=== PATIENT | female | born 1960 | race African-American/Black ===

== ENCOUNTER → 2016-09-19 | Outpatient (CLI) | payer BC ==
[2016-09-19 08:03] LABS: ABSOLUTE EOSINOPHILS # (AUTO) 0.2 10^3/uL (0.0-0.6); ABSOLUTE LYMPHOCYTES (AUTO) 1.2 10^3/uL (0.5-4.7); ABSOLUTE MONOCYTES (AUTO) 0.6 10^3/uL (0.1-1.4); ABSOLUTE NEUT (AUTO) 3.2 10^3/uL (1.7-8.2); BASOPHILS % (AUTO) 0.5 % (0-2); EOSINOPHILS % (AUTO) 3.2 % (0-6); HEMOGLOBIN 12.5 g/dL (12.0-15.5); HGB HCT DIFFERENCE 0.5; LYMPHOCYTES % (AUTO) 23.7 % (13-45); MEAN CORPUSCULAR HEMOGLOBIN 27.8 pg (27.0-33.4); MEAN CORPUSCULAR HGB CONC 33.7 g/dL (32.0-36.0); MEAN CORPUSCULAR VOLUME 83 fl (80-97); MONOCYTES % (AUTO) 10.7 % (3-13); RED BLOOD COUNT 4.49 10^6/uL (3.72-5.28); RED CELL DISTRIBUTION WIDTH 16.2 % (11.5-14.0); SEGMENTED NEUTROPHILS % (AUTO) 61.9 % (42-78); WHITE BLOOD COUNT 5.2 10^3/uL (4.0-10.5)
[2016-09-19 08:08] LABS: APPEARANCE,URINE CLEAR; BILIRUBIN,URINE NEGATIVE (NEGATIVE); GLUCOSE, URINE NEGATIVE (NEGATIVE); KETONES,URINE NEGATIVE (NEGATIVE); LEUKOCYTE ESTERASE,URINE NEGATIVE (NEGATIVE); NITRITE,URINE NEGATIVE (NEGATIVE); PROTEIN,URINE NEGATIVE (NEGATIVE); URINE SPECIFIC GRAVITY 1.013; UROBILINOGEN,URINE NEGATIVE mg/dL (<2.0)
[2016-09-19 08:23] LABS: ALANINE AMINOTRANSFERASE 23 U/L (9-52); ALBUMIN 4.2 g/dL (3.5-5.0); ALKALINE PHOSPHATASE 80 U/L (38-126); ANION GAP 12 (5-19); ASPARTATE AMINO TRANSFERASE 25 U/L (14-36); BILIRUBIN,TOTAL 0.7 mg/dL (0.2-1.3); BLOOD UREA NITROGEN 10 mg/dL (7-20); CALCIUM 9.4 mg/dL (8.4-10.2); CARBON DIOXIDE 24 mmol/L (22-30); CHLORIDE 107 mmol/L (98-107); CREATININE RESULT 0.77 mg/dL (0.52-1.25); GLUCOSE 89 mg/dL (75-110); POTASSIUM 3.8 mmol/L (3.6-5.0); SODIUM 143.1 mmol/L (137-145); TOTAL PROTEIN 7.4 g/dL (6.3-8.2)
== END ==
LOC: OD 07:04
PROVIDERS: ATTEND Internal Medicine Cardiovascular Disease
DX: I48.0 Paroxysmal atrial fibrillation (principal); Z79.01 Long term (current) use of anticoagulants; Z79.899 Other long term (current) drug therapy
CPT/HCPCS: 36415; 80048; 80076; 81001; 82272; 83735; 85025; 85730

== ENCOUNTER → 2016-12-26 | Outpatient (CLI) | payer BC ==
[2016-12-26 08:46] LABS: APPEARANCE,URINE SLIGHTLY-CLOUDY; BILIRUBIN,URINE NEGATIVE (NEGATIVE); GLUCOSE, URINE NEGATIVE (NEGATIVE); KETONES,URINE NEGATIVE (NEGATIVE); LEUKOCYTE ESTERASE,URINE NEGATIVE (NEGATIVE); NITRITE,URINE NEGATIVE (NEGATIVE); PROTEIN,URINE NEGATIVE (NEGATIVE); URINE SPECIFIC GRAVITY 1.013; UROBILINOGEN,URINE NEGATIVE mg/dL (<2.0)
[2016-12-26 08:53] LABS: ABSOLUTE EOSINOPHILS # (AUTO) 0.2 10^3/uL (0.0-0.6); ABSOLUTE LYMPHOCYTES (AUTO) 1.1 10^3/uL (0.5-4.7); ABSOLUTE MONOCYTES (AUTO) 0.5 10^3/uL (0.1-1.4); ABSOLUTE NEUT (AUTO) 2.7 10^3/uL (1.7-8.2); BASOPHILS % (AUTO) 1.1 % (0-2); EOSINOPHILS % (AUTO) 3.3 % (0-6); HEMATOCRIT 38.9 % (36.0-47.0); HEMOGLOBIN 12.8 g/dL (12.0-15.5); HGB HCT DIFFERENCE -0.5; LYMPHOCYTES % (AUTO) 24.8 % (13-45); MEAN CORPUSCULAR HEMOGLOBIN 27.5 pg (27.0-33.4); MEAN CORPUSCULAR HGB CONC 32.9 g/dL (32.0-36.0); MEAN CORPUSCULAR VOLUME 84 fl (80-97); MONOCYTES % (AUTO) 11.8 % (3-13); RED BLOOD COUNT 4.66 10^6/uL (3.72-5.28); RED CELL DISTRIBUTION WIDTH 15.5 % (11.5-14.0); WHITE BLOOD COUNT 4.6 10^3/uL (4.0-10.5)
[2016-12-26 09:06] LABS: ALANINE AMINOTRANSFERASE 34 U/L (9-52); ALBUMIN 4.2 g/dL (3.5-5.0); ALKALINE PHOSPHATASE 75 U/L (38-126); ANION GAP 12 (5-19); ASPARTATE AMINO TRANSFERASE 25 U/L (14-36); BILIRUBIN,DIRECT 0.3 mg/dL (0.0-0.4); BILIRUBIN,TOTAL 0.7 mg/dL (0.2-1.3); BLOOD UREA NITROGEN 12 mg/dL (7-20); CALCIUM 9.7 mg/dL (8.4-10.2); CARBON DIOXIDE 26 mmol/L (22-30); CHLORIDE 105 mmol/L (98-107); CREATININE RESULT 0.81 mg/dL (0.52-1.25); GLUCOSE 90 mg/dL (75-110); MAGNESIUM 2.2 mg/dL (1.6-2.3); POTASSIUM 3.7 mmol/L (3.6-5.0); SODIUM 142.6 mmol/L (137-145); TOTAL PROTEIN 7.4 g/dL (6.3-8.2)
== END ==
LOC: OD 07:34
PROVIDERS: ATTEND Internal Medicine Cardiovascular Disease
DX: Z79.01 Long term (current) use of anticoagulants (principal); Z79.899 Other long term (current) drug therapy
CPT/HCPCS: 36415; 80048; 80076; 81001; 82272; 83735; 85025; 85730

== ENCOUNTER → 2017-02-17 | Outpatient (CLI) | payer BC ==
[2017-02-17 08:47] LABS: CHOLESTEROL 153.69 mg/dL (0-200); Direct HDL 56 mg/dL (>40); TRIGLYCERIDES 64 mg/dL (<150)
[2017-02-17 08:58] LABS: DIRECT LDL 69 mg/dL (<100)
== END ==
LOC: OD 07:10
PROVIDERS: ATTEND Internal Medicine Cardiovascular Disease
DX: E78.00 Pure hypercholesterolemia, unspecified (principal)
CPT/HCPCS: 36415; 80061

== ENCOUNTER → 2017-03-25 | Outpatient (CLI) | payer BC ==
[2017-03-25 12:05] LABS: APPEARANCE,URINE CLEAR; BILIRUBIN,URINE NEGATIVE (NEGATIVE); GLUCOSE, URINE NEGATIVE (NEGATIVE); KETONES,URINE NEGATIVE (NEGATIVE); LEUKOCYTE ESTERASE,URINE NEGATIVE (NEGATIVE); NITRITE,URINE NEGATIVE (NEGATIVE); PROTEIN,URINE NEGATIVE (NEGATIVE); URINE SPECIFIC GRAVITY 1.015; UROBILINOGEN,URINE NEGATIVE mg/dL (<2.0)
[2017-03-25 12:13] LABS: ABSOLUTE EOSINOPHILS # (AUTO) 0.1 10^3/uL (0.0-0.6); ABSOLUTE LYMPHOCYTES (AUTO) 1.3 10^3/uL (0.5-4.7); ABSOLUTE MONOCYTES (AUTO) 0.5 10^3/uL (0.1-1.4); ABSOLUTE NEUT (AUTO) 2.8 10^3/uL (1.7-8.2); BASOPHILS % (AUTO) 0.7 % (0-2); EOSINOPHILS % (AUTO) 2.7 % (0-6); HEMATOCRIT 36.3 % (36.0-47.0); HEMOGLOBIN 12.2 g/dL (12.0-15.5); HGB HCT DIFFERENCE 0.3; LYMPHOCYTES % (AUTO) 28.1 % (13-45); MEAN CORPUSCULAR HEMOGLOBIN 28.2 pg (27.0-33.4); MEAN CORPUSCULAR HGB CONC 33.7 g/dL (32.0-36.0); MEAN CORPUSCULAR VOLUME 84 fl (80-97); MONOCYTES % (AUTO) 10.2 % (3-13); RED BLOOD COUNT 4.33 10^6/uL (3.72-5.28); RED CELL DISTRIBUTION WIDTH 15.7 % (11.5-14.0); SEGMENTED NEUTROPHILS % (AUTO) 58.3 % (42-78); WHITE BLOOD COUNT 4.7 10^3/uL (4.0-10.5)
[2017-03-25 12:29] LABS: ALANINE AMINOTRANSFERASE 31 U/L (9-52); ALBUMIN 4.1 g/dL (3.5-5.0); ALKALINE PHOSPHATASE 77 U/L (38-126); ANION GAP 9 (5-19); ASPARTATE AMINO TRANSFERASE 25 U/L (14-36); BILIRUBIN,DIRECT 0.4 mg/dL (0.0-0.4); BILIRUBIN,TOTAL 0.7 mg/dL (0.2-1.3); BLOOD UREA NITROGEN 9 mg/dL (7-20); CALCIUM 9.7 mg/dL (8.4-10.2); CARBON DIOXIDE 28 mmol/L (22-30); CHLORIDE 105 mmol/L (98-107); CREATININE RESULT 0.83 mg/dL (0.52-1.25); GLUCOSE 97 mg/dL (75-110); MAGNESIUM 2.2 mg/dL (1.6-2.3); POTASSIUM 3.6 mmol/L (3.6-5.0); SODIUM 141.8 mmol/L (137-145); TOTAL PROTEIN 7.4 g/dL (6.3-8.2)
== END ==
LOC: OD 10:34
PROVIDERS: ATTEND Internal Medicine Cardiovascular Disease
DX: E78.00 Pure hypercholesterolemia, unspecified (principal); Z79.01 Long term (current) use of anticoagulants; Z79.899 Other long term (current) drug therapy
CPT/HCPCS: 80048; 80076; 81001; 82272; 83735; 85025; 85730

== ENCOUNTER → 2017-09-08 | Outpatient (CLI) | payer BC ==
[2017-09-08 08:33] LABS: ABSOLUTE EOSINOPHILS # (AUTO) 0.2 10^3/uL (0.0-0.6); ABSOLUTE MONOCYTES (AUTO) 0.5 10^3/uL (0.1-1.4); ABSOLUTE NEUT (AUTO) 3.3 10^3/uL (1.7-8.2); EOSINOPHILS % (AUTO) 3.1 % (0-6); HEMATOCRIT 38.7 % (36.0-47.0); HEMOGLOBIN 12.7 g/dL (12.0-15.5); LYMPHOCYTES % (AUTO) 20.3 % (13-45); MEAN CORPUSCULAR HEMOGLOBIN 27.6 pg (27.0-33.4); MEAN CORPUSCULAR HGB CONC 32.7 g/dL (32.0-36.0); MEAN CORPUSCULAR VOLUME 84 fl (80-97); PLATELET COUNT 299 10^3/uL (150-450); RED BLOOD COUNT 4.59 10^6/uL (3.72-5.28); RED CELL DISTRIBUTION WIDTH 15.6 % (11.5-14.0); SEGMENTED NEUTROPHILS % (AUTO) 65.6 % (42-78); TOTAL CELLS COUNTED % (AUTO) 100 %; WHITE BLOOD COUNT 5.1 10^3/uL (4.0-10.5)
[2017-09-08 08:50] LABS: ALANINE AMINOTRANSFERASE 26 U/L (9-52); ALBUMIN 4.2 g/dL (3.5-5.0); ALKALINE PHOSPHATASE 71 U/L (38-126); ANION GAP 10 (5-19); ASPARTATE AMINO TRANSFERASE 23 U/L (14-36); BILIRUBIN,DIRECT 0.3 mg/dL (0.0-0.4); BILIRUBIN,TOTAL 0.6 mg/dL (0.2-1.3); BLOOD UREA NITROGEN 12 mg/dL (7-20); CALCIUM 10.2 mg/dL (8.4-10.2); CARBON DIOXIDE 27 mmol/L (22-30); CHLORIDE 105 mmol/L (98-107); GLUCOSE 90 mg/dL (75-110); MAGNESIUM 2.1 mg/dL (1.6-2.3); POTASSIUM 4.1 mmol/L (3.6-5.0); SODIUM 142.2 mmol/L (137-145); TOTAL PROTEIN 7.4 g/dL (6.3-8.2)
[2017-09-08 09:17] LABS: APPEARANCE,URINE SLIGHTLY-CLOUDY; BILIRUBIN,URINE NEGATIVE (NEGATIVE); COLOR,URINE YELLOW; GLUCOSE, URINE NEGATIVE (NEGATIVE); KETONES,URINE NEGATIVE (NEGATIVE); LEUKOCYTE ESTERASE,URINE NEGATIVE (NEGATIVE); NITRITE,URINE NEGATIVE (NEGATIVE); PROTEIN,URINE NEGATIVE (NEGATIVE); URINE SPECIFIC GRAVITY 1.015
== END ==
LOC: OD 07:15
PROVIDERS: ATTEND Internal Medicine Cardiovascular Disease
DX: Z79.01 Long term (current) use of anticoagulants (principal); Z79.899 Other long term (current) drug therapy
CPT/HCPCS: 36415; 80048; 80076; 81001; 82272; 83735; 85025; 85730

== ENCOUNTER → 2017-12-10 | Outpatient (CLI) | payer BC ==
[2017-12-10 08:19] LABS: ABSOLUTE EOSINOPHILS # (AUTO) 0.2 10^3/uL (0.0-0.6); ABSOLUTE LYMPHOCYTES (AUTO) 1.2 10^3/uL (0.5-4.7); ABSOLUTE MONOCYTES (AUTO) 0.5 10^3/uL (0.1-1.4); ABSOLUTE NEUT (AUTO) 3.2 10^3/uL (1.7-8.2); BASOPHILS % (AUTO) 0.7 % (0-2); HEMATOCRIT 38.6 % (36.0-47.0); HEMOGLOBIN 12.8 g/dL (12.0-15.5); LYMPHOCYTES % (AUTO) 23.6 % (13-45); MEAN CORPUSCULAR HEMOGLOBIN 27.8 pg (27.0-33.4); MEAN CORPUSCULAR HGB CONC 33.1 g/dL (32.0-36.0); MEAN CORPUSCULAR VOLUME 84 fl (80-97); MONOCYTES % (AUTO) 10.1 % (3-13); PLATELET COUNT 306 10^3/uL (150-450); RED BLOOD COUNT 4.59 10^6/uL (3.72-5.28); RED CELL DISTRIBUTION WIDTH 15.2 % (11.5-14.0); SEGMENTED NEUTROPHILS % (AUTO) 61.6 % (42-78); TOTAL CELLS COUNTED % (AUTO) 100 %; WHITE BLOOD COUNT 5.2 10^3/uL (4.0-10.5)
[2017-12-10 08:33] LABS: APPEARANCE,URINE CLEAR; BILIRUBIN,URINE NEGATIVE (NEGATIVE); COLOR,URINE YELLOW; GLUCOSE, URINE NEGATIVE (NEGATIVE); KETONES,URINE NEGATIVE (NEGATIVE); LEUKOCYTE ESTERASE,URINE NEGATIVE (NEGATIVE); NITRITE,URINE NEGATIVE (NEGATIVE); PROTEIN,URINE NEGATIVE (NEGATIVE); URINE SPECIFIC GRAVITY 1.014; UROBILINOGEN,URINE NEGATIVE mg/dL (<2.0)
[2017-12-10 08:53] LABS: ALANINE AMINOTRANSFERASE 29 U/L (9-52); ALKALINE PHOSPHATASE 80 U/L (38-126); ANION GAP 13 (5-19); ASPARTATE AMINO TRANSFERASE 25 U/L (14-36); BILIRUBIN,DIRECT 0.3 mg/dL (0.0-0.4); BILIRUBIN,TOTAL 0.3 mg/dL (0.2-1.3); BLOOD UREA NITROGEN 11 mg/dL (7-20); CALCIUM 9.8 mg/dL (8.4-10.2); CARBON DIOXIDE 27 mmol/L (22-30); CHLORIDE 107 mmol/L (98-107); GLUCOSE 94 mg/dL (75-110); POTASSIUM 4.3 mmol/L (3.6-5.0); SODIUM 146.5 mmol/L (137-145); TOTAL PROTEIN 7.4 g/dL (6.3-8.2)
== END ==
LOC: OD 07:18
PROVIDERS: ATTEND Internal Medicine Cardiovascular Disease
DX: Z79.01 Long term (current) use of anticoagulants (principal); Z79.899 Other long term (current) drug therapy
CPT/HCPCS: 36415; 80048; 80076; 81001; 82272; 83735; 85025; 85730

== ENCOUNTER → 2018-03-17 | Outpatient (CLI) | payer BC ==
[2018-03-17 08:22] LABS: ABSOLUTE EOSINOPHILS # (AUTO) 0.2 10^3/uL (0.0-0.6); ABSOLUTE MONOCYTES (AUTO) 0.6 10^3/uL (0.1-1.4); ABSOLUTE NEUT (AUTO) 3.1 10^3/uL (1.7-8.2); BASOPHILS % (AUTO) 0.7 % (0-2); EOSINOPHILS % (AUTO) 4.2 % (0-6); HEMATOCRIT 38.3 % (36.0-47.0); HEMOGLOBIN 12.4 g/dL (12.0-15.5); LYMPHOCYTES % (AUTO) 20.8 % (13-45); MEAN CORPUSCULAR HEMOGLOBIN 27.1 pg (27.0-33.4); MEAN CORPUSCULAR HGB CONC 32.4 g/dL (32.0-36.0); MEAN CORPUSCULAR VOLUME 84 fl (80-97); MONOCYTES % (AUTO) 12.3 % (3-13); PLATELET COUNT 301 10^3/uL (150-450); RED BLOOD COUNT 4.58 10^6/uL (3.72-5.28); RED CELL DISTRIBUTION WIDTH 16.1 % (11.5-14.0); TOTAL CELLS COUNTED % (AUTO) 100 %
[2018-03-17 08:33] LABS: APPEARANCE,URINE SLIGHTLY-CLOUDY; BILIRUBIN,URINE NEGATIVE (NEGATIVE); COLOR,URINE YELLOW; GLUCOSE, URINE NEGATIVE (NEGATIVE); KETONES,URINE NEGATIVE (NEGATIVE); LEUKOCYTE ESTERASE,URINE NEGATIVE (NEGATIVE); NITRITE,URINE NEGATIVE (NEGATIVE); PROTEIN,URINE NEGATIVE (NEGATIVE); URINE SPECIFIC GRAVITY 1.016
[2018-03-17 08:51] LABS: ALANINE AMINOTRANSFERASE 29 U/L (9-52); ALKALINE PHOSPHATASE 76 U/L (38-126); ANION GAP 13 (5-19); ASPARTATE AMINO TRANSFERASE 26 U/L (14-36); BILIRUBIN,DIRECT 0.3 mg/dL (0.0-0.4); BILIRUBIN,TOTAL 0.6 mg/dL (0.2-1.3); BLOOD UREA NITROGEN 11 mg/dL (7-20); CALCIUM 9.8 mg/dL (8.4-10.2); CARBON DIOXIDE 26 mmol/L (22-30); CHLORIDE 107 mmol/L (98-107); GLUCOSE 83 mg/dL (75-110); POTASSIUM 4.1 mmol/L (3.6-5.0); SODIUM 145.8 mmol/L (137-145); TOTAL PROTEIN 7.2 g/dL (6.3-8.2)
== END ==
LOC: OD 07:23
PROVIDERS: ATTEND Internal Medicine Cardiovascular Disease
DX: K92.2 Gastrointestinal hemorrhage, unspecified (principal); I10 Essential (primary) hypertension; D64.9 Anemia, unspecified; I48.0 Paroxysmal atrial fibrillation; Z79.899 Other long term (current) drug therapy
CPT/HCPCS: 36415; 80048; 80076; 81001; 82272; 83735; 85025; 85730

== ENCOUNTER → 2018-06-15 | Outpatient (CLI) | payer BC ==
[2018-06-15 07:38] LABS: ABSOLUTE EOSINOPHILS # (AUTO) 0.2 10^3/uL (0.0-0.6); ABSOLUTE LYMPHOCYTES (AUTO) 1.2 10^3/uL (0.5-4.7); ABSOLUTE MONOCYTES (AUTO) 0.6 10^3/uL (0.1-1.4); ABSOLUTE NEUT (AUTO) 3.3 10^3/uL (1.7-8.2); BASOPHILS % (AUTO) 0.7 % (0-2); EOSINOPHILS % (AUTO) 3.3 % (0-6); HEMATOCRIT 38.1 % (36.0-47.0); LYMPHOCYTES % (AUTO) 21.9 % (13-45); MEAN CORPUSCULAR HEMOGLOBIN 28.5 pg (27.0-33.4); MEAN CORPUSCULAR HGB CONC 34.2 g/dL (32.0-36.0); MEAN CORPUSCULAR VOLUME 84 fl (80-97); MONOCYTES % (AUTO) 11.3 % (3-13); PLATELET COUNT 307 10^3/uL (150-450); RED BLOOD COUNT 4.57 10^6/uL (3.72-5.28); SEGMENTED NEUTROPHILS % (AUTO) 62.8 % (42-78); TOTAL CELLS COUNTED % (AUTO) 100 %; WHITE BLOOD COUNT 5.3 10^3/uL (4.0-10.5)
[2018-06-15 07:52] LABS: APPEARANCE,URINE CLEAR; BILIRUBIN,URINE NEGATIVE (NEGATIVE); COLOR,URINE YELLOW; GLUCOSE, URINE NEGATIVE (NEGATIVE); KETONES,URINE NEGATIVE (NEGATIVE); LEUKOCYTE ESTERASE,URINE NEGATIVE (NEGATIVE); NITRITE,URINE NEGATIVE (NEGATIVE); PROTEIN,URINE NEGATIVE (NEGATIVE); URINE SPECIFIC GRAVITY 1.013; UROBILINOGEN,URINE NEGATIVE mg/dL (<2.0)
[2018-06-15 08:04] LABS: ALANINE AMINOTRANSFERASE 29 U/L (9-52); ALKALINE PHOSPHATASE 80 U/L (38-126); ANION GAP 10 (5-19); ASPARTATE AMINO TRANSFERASE 32 U/L (14-36); BILIRUBIN,DIRECT 0.3 mg/dL (0.0-0.4); BILIRUBIN,TOTAL 0.8 mg/dL (0.2-1.3); BLOOD UREA NITROGEN 11 mg/dL (7-20); CALCIUM 9.7 mg/dL (8.4-10.2); CARBON DIOXIDE 29 mmol/L (22-30); CHLORIDE 105 mmol/L (98-107); GLUCOSE 95 mg/dL (75-110); POTASSIUM 4.2 mmol/L (3.6-5.0); SODIUM 144.2 mmol/L (137-145); TOTAL PROTEIN 7.4 g/dL (6.3-8.2)
== END ==
LOC: OD 07:09
PROVIDERS: ATTEND Internal Medicine Cardiovascular Disease
DX: I10 Essential (primary) hypertension (principal); K92.2 Gastrointestinal hemorrhage, unspecified; D64.9 Anemia, unspecified; I48.0 Paroxysmal atrial fibrillation; Z79.899 Other long term (current) drug therapy
CPT/HCPCS: 36415; 80048; 80076; 81001; 82272; 83735; 85025; 85730

== ENCOUNTER → 2018-09-09 | Outpatient (CLI) | payer BC ==
[2018-09-09 08:40] LABS: ABSOLUTE EOSINOPHILS # (AUTO) 0.1 10^3/uL (0.0-0.6); ABSOLUTE LYMPHOCYTES (AUTO) 1.3 10^3/uL (0.5-4.7); ABSOLUTE MONOCYTES (AUTO) 0.5 10^3/uL (0.1-1.4); ABSOLUTE NEUT (AUTO) 2.8 10^3/uL (1.7-8.2); BASOPHILS % (AUTO) 0.6 % (0-2); EOSINOPHILS % (AUTO) 2.7 % (0-6); HEMATOCRIT 37.8 % (36.0-47.0); HEMOGLOBIN 12.6 g/dL (12.0-15.5); LYMPHOCYTES % (AUTO) 26.5 % (13-45); MEAN CORPUSCULAR HEMOGLOBIN 27.8 pg (27.0-33.4); MEAN CORPUSCULAR HGB CONC 33.2 g/dL (32.0-36.0); MEAN CORPUSCULAR VOLUME 84 fl (80-97); MONOCYTES % (AUTO) 11.2 % (3-13); PLATELET COUNT 300 10^3/uL (150-450); RED BLOOD COUNT 4.52 10^6/uL (3.72-5.28); RED CELL DISTRIBUTION WIDTH 15.6 % (11.5-14.0); TOTAL CELLS COUNTED % (AUTO) 100 %; WHITE BLOOD COUNT 4.8 10^3/uL (4.0-10.5)
[2018-09-09 08:52] LABS: APPEARANCE,URINE SLIGHTLY-CLOUDY; BILIRUBIN,URINE NEGATIVE (NEGATIVE); COLOR,URINE YELLOW; GLUCOSE, URINE NEGATIVE (NEGATIVE); KETONES,URINE NEGATIVE (NEGATIVE); LEUKOCYTE ESTERASE,URINE NEGATIVE (NEGATIVE); NITRITE,URINE NEGATIVE (NEGATIVE); PROTEIN,URINE NEGATIVE (NEGATIVE); URINE SPECIFIC GRAVITY 1.016; UROBILINOGEN,URINE NEGATIVE mg/dL (<2.0)
[2018-09-09 09:13] LABS: ALANINE AMINOTRANSFERASE 32 U/L (9-52); ALBUMIN 4.3 g/dL (3.5-5.0); ALKALINE PHOSPHATASE 77 U/L (38-126); ANION GAP 10 (5-19); ASPARTATE AMINO TRANSFERASE 25 U/L (14-36); BILIRUBIN,DIRECT 0.2 mg/dL (0.0-0.4); BILIRUBIN,TOTAL 0.5 mg/dL (0.2-1.3); BLOOD UREA NITROGEN 10 mg/dL (7-20); CALCIUM 9.8 mg/dL (8.4-10.2); CARBON DIOXIDE 28 mmol/L (22-30); CHLORIDE 107 mmol/L (98-107); GLUCOSE 88 mg/dL (75-110); POTASSIUM 3.8 mmol/L (3.6-5.0); SODIUM 144.6 mmol/L (137-145); TOTAL PROTEIN 7.4 g/dL (6.3-8.2)
[2018-09-09 11:44] LABS: CHOLESTEROL 192.02 mg/dL (0-200); TRIGLYCERIDES 58 mg/dL (<150)
[2018-09-09 12:01] LABS: DIRECT LDL 112 mg/dL (<100)
== END ==
LOC: OD 07:29
PROVIDERS: ATTEND Internal Medicine Cardiovascular Disease
DX: K92.2 Gastrointestinal hemorrhage, unspecified (principal); I10 Essential (primary) hypertension; D64.9 Anemia, unspecified; I48.0 Paroxysmal atrial fibrillation; Z79.899 Other long term (current) drug therapy
CPT/HCPCS: 36415; 80048; 80061; 80076; 81001; 82272; 83036; 83735; 85025; 85730

== ENCOUNTER → 2018-10-20 | Outpatient (CLI) | payer BC | LOC: OD 08:33 | PROVIDERS: ATTEND Internal Medicine Cardiovascular Disease | DX: L65.9 Nonscarring hair loss, unspecified (principal) | CPT/HCPCS: 36415; 84443 ==

== ENCOUNTER → 2018-10-29 | Outpatient (CLI) | payer BC ==
[2018-10-29 08:21] LABS: ABSOLUTE EOSINOPHILS # (AUTO) 0.2 10^3/uL (0.0-0.6); ABSOLUTE LYMPHOCYTES (AUTO) 1.2 10^3/uL (0.5-4.7); ABSOLUTE MONOCYTES (AUTO) 0.5 10^3/uL (0.1-1.4); ABSOLUTE NEUT (AUTO) 3.3 10^3/uL (1.7-8.2); BASOPHILS % (AUTO) 0.7 % (0-2); EOSINOPHILS % (AUTO) 3.9 % (0-6); HEMATOCRIT 36.9 % (36.0-47.0); HEMOGLOBIN 12.3 g/dL (12.0-15.5); LYMPHOCYTES % (AUTO) 22.5 % (13-45); MEAN CORPUSCULAR HEMOGLOBIN 27.8 pg (27.0-33.4); MEAN CORPUSCULAR HGB CONC 33.4 g/dL (32.0-36.0); MEAN CORPUSCULAR VOLUME 83 fl (80-97); MONOCYTES % (AUTO) 10.1 % (3-13); PLATELET COUNT 300 10^3/uL (150-450); RED BLOOD COUNT 4.42 10^6/uL (3.72-5.28); SEGMENTED NEUTROPHILS % (AUTO) 62.8 % (42-78); TOTAL CELLS COUNTED % (AUTO) 100 %; WHITE BLOOD COUNT 5.2 10^3/uL (4.0-10.5)
[2018-10-29 08:25] LABS: APPEARANCE,URINE CLEAR; BILIRUBIN,URINE NEGATIVE (NEGATIVE); COLOR,URINE YELLOW; GLUCOSE, URINE NEGATIVE (NEGATIVE); KETONES,URINE NEGATIVE (NEGATIVE); LEUKOCYTE ESTERASE,URINE NEGATIVE (NEGATIVE); NITRITE,URINE NEGATIVE (NEGATIVE); PROTEIN,URINE NEGATIVE (NEGATIVE); URINE SPECIFIC GRAVITY 1.016
[2018-10-29 08:44] LABS: ALANINE AMINOTRANSFERASE 25 U/L (9-52); ALBUMIN 3.9 g/dL (3.5-5.0); ALKALINE PHOSPHATASE 80 U/L (38-126); ANION GAP 9 (5-19); ASPARTATE AMINO TRANSFERASE 25 U/L (14-36); BILIRUBIN,DIRECT 0.3 mg/dL (0.0-0.4); BILIRUBIN,TOTAL 0.5 mg/dL (0.2-1.3); BLOOD UREA NITROGEN 12 mg/dL (7-20); CALCIUM 9.8 mg/dL (8.4-10.2); CARBON DIOXIDE 27 mmol/L (22-30); CHLORIDE 105 mmol/L (98-107); GLUCOSE 88 mg/dL (75-110); SODIUM 140.9 mmol/L (137-145); TOTAL PROTEIN 7.3 g/dL (6.3-8.2)
== END ==
LOC: OD 07:04
PROVIDERS: ATTEND Internal Medicine Cardiovascular Disease
DX: I48.0 Paroxysmal atrial fibrillation (principal); D64.9 Anemia, unspecified; I10 Essential (primary) hypertension; K92.2 Gastrointestinal hemorrhage, unspecified; Z79.899 Other long term (current) drug therapy
CPT/HCPCS: 36415; 80048; 80076; 81001; 82272; 83735; 85025; 85730

== ENCOUNTER 2018-11-03 16:57 | Inpatient (IN) | payer BC ==
[2018-11-03] MEDS ORDERED: DILTIAZEM HCL INJ 25 MG/5 ML VIAL IV ONE (17:51)
[2018-11-03] MEDS ORDERED: DILTIAZEM HCL/D5W 125 MG/125 ML RTUINJ IV PRN (17:51)
--- NOTE | 2018-11-03 17:52 | ER Document Report ---
ED Medical Screen (RME) - General Chief Complaint: Irregular Pulse Stated Complaint: IRREGULAR PULSE Time Seen by Provider: 11/03/18 17:29 Primary Care Provider: GUSTABO RODRIGUEZ MD [Primary Care Provider] - Follow up as needed Notes: Patient is a 58-year-old female with A. fib on Pradaxa that presents to the emergency department for chief complaint of palpitations since 10 PM last night. ROS: Other than noted above, the 12 point review of systems was reviewed with the patient and were negative, all pertinent findings are included in the HPI. PHYSICAL EXAMINATION: Vital signs reviewed. GENERAL: Well-appearing, well-nourished and in no acute distress. HEAD: Atraumatic, normocephalic. EYES: Pupils equal round extraocular movements intact, conjunctiva are normal. ENT: Nares patent NECK: Normal range of motion CV: Heart rate tachycardic, and a regular rhythm LUNGS: No respiratory distress Musculoskeletal: Normal range of motion NEUROLOGICAL: Normal speech PSYCH: Normal mood, normal affect. MDM: Patient seen and examined for rapid initial assessment. Vital signs reviewed. A comprehensive ED assessment and evaluation of the patient, analysis of test results and completion of the medical decision making process will be conducted by additional ED providers. *Note is created using voice recognition software and may contain spelling, syntax or grammatical errors. TRAVEL OUTSIDE OF THE [place] IN LAST 30 DAYS: No - Related Data Allergies/Adverse Reactions: Penicillins Allergy (Verified 11/03/18 17:02) Past Medical History - Past Medical History Cardiac Medical History: Reports: Hx Atrial Fibrillation, Hx Hypertension Renal/ Medical History: Denies: Hx Peritoneal Dialysis Physical Exam - Vital signs Vitals: Temp Pulse Resp BP Pulse Ox 97.9 F 129 H 26 H 135/78 H 94 11/03/18 17:15 11/03/18 17:15 11/03/18 17:15 11/03/18 17:15 11/03/18 17:15 Course - Vital Signs Vital signs: Temp Pulse Resp BP Pulse Ox 97.9 F 129 H 26 H 135/78 H 94 11/03/18 17:15 11/03/18 17:15 11/03/18 17:15 11/03/18 17:15 11/03/18 17:15 Doctor's Discharge - Discharge Referrals: MICHAEL,GUSTABO, MD [Primary Care Provider] - Follow up as needed
--- NOTE | 2018-11-03 18:20 | RADIOLOGY REPORT (SQ) ---
EXAM DESCRIPTION: CHEST SINGLE VIEW COMPLETED DATE/TIME: 11/03/2018 6:14 pm REASON FOR STUDY: palpitations COMPARISON: 11/25/2010 EXAM PARAMETERS: NUMBER OF VIEWS: One view. TECHNIQUE: Single frontal radiographic view of the chest acquired. RADIATION DOSE: NA LIMITATIONS: None. FINDINGS: LUNGS AND PLEURA: No opacities, masses or pneumothorax. No pleural effusion. MEDIASTINUM AND HILAR STRUCTURES: Prominent hiatal hernia is present. HEART AND VASCULAR STRUCTURES: Heart size is borderline. There is no pulmonary edema. BONES: No acute findings. HARDWARE: None in the chest. OTHER: No other significant finding. IMPRESSION: Borderline cardiomegaly without pulmonary edema. Hiatal hernia. TECHNICAL DOCUMENTATION: JOB ID: [id number] [employer]- All Rights Reserved Reading location - IP/workstation name: [email or web address]
[2018-11-03 18:21] LABS: ABSOLUTE BASOPHILS # (AUTO) 0.1 10^3/uL (0.0-0.2); ABSOLUTE EOSINOPHILS # (AUTO) 0.2 10^3/uL (0.0-0.6); ABSOLUTE LYMPHOCYTES (AUTO) 1.7 10^3/uL (0.5-4.7); ABSOLUTE MONOCYTES (AUTO) 0.7 10^3/uL (0.1-1.4); ABSOLUTE NEUT (AUTO) 3.7 10^3/uL (1.7-8.2); BASOPHILS % (AUTO) 0.9 % (0-2); EOSINOPHILS % (AUTO) 3.6 % (0-6); HEMATOCRIT 38.1 % (36.0-47.0); HEMOGLOBIN 12.9 g/dL (12.0-15.5); MEAN CORPUSCULAR HEMOGLOBIN 28.2 pg (27.0-33.4); MEAN CORPUSCULAR HGB CONC 33.9 g/dL (32.0-36.0); MEAN CORPUSCULAR VOLUME 83 fl (80-97); MONOCYTES % (AUTO) 10.9 % (3-13); PLATELET COUNT 358 10^3/uL (150-450); RED BLOOD COUNT 4.59 10^6/uL (3.72-5.28); RED CELL DISTRIBUTION WIDTH 15.7 % (11.5-14.0); SEGMENTED NEUTROPHILS % (AUTO) 57.6 % (42-78); TOTAL CELLS COUNTED % (AUTO) 100 %; WHITE BLOOD COUNT 6.4 10^3/uL (4.0-10.5)
[2018-11-03 18:56] LABS: ALANINE AMINOTRANSFERASE 27 U/L (9-52); ALBUMIN 4.2 g/dL (3.5-5.0); ALKALINE PHOSPHATASE 89 U/L (38-126); ANION GAP 9 (5-19); ASPARTATE AMINO TRANSFERASE 34 U/L (14-36); BILIRUBIN,DIRECT 0.4 mg/dL (0.0-0.4); BILIRUBIN,TOTAL 0.6 mg/dL (0.2-1.3); BLOOD UREA NITROGEN 13 mg/dL (7-20); CALCIUM 10.2 mg/dL (8.4-10.2); CARBON DIOXIDE 25 mmol/L (22-30); CHLORIDE 106 mmol/L (98-107); GLUCOSE 104 mg/dL (75-110); POTASSIUM 3.7 mmol/L (3.6-5.0); SODIUM 139.6 mmol/L (137-145); TOTAL PROTEIN 8.1 g/dL (6.3-8.2)
[2018-11-03] MEDS ORDERED: ACETAMINOPHEN 325 MG TABLET PO PRN (21:49)
[2018-11-03] MEDS ORDERED: MAG HYDROX/AL HYDROX/SIMETH SUSP 30 ML UDCUP PO PRN (21:49)
--- NOTE | 2018-11-03 21:54 | EKG REPORT ---
SEVERITY:- ABNORMAL ECG - ATRIAL FIBRILLATION MULTIFORM VENTRICULAR PREMATURE COMPLEXES LVH WITH SECONDARY REPOLARIZATION ABNORMALITY : Confirmed by: Maria Guadalupe Forman MD 03-Nov-2018 21:53:09
--- NOTE | 2018-11-03 22:17 | ER Document Report ---
ED General - General Chief Complaint: Irregular Pulse Stated Complaint: IRREGULAR PULSE Time Seen by Provider: 11/03/18 17:29 TRAVEL OUTSIDE OF THE [place] IN LAST 30 DAYS: No - HPI Notes: Patient presents emergency department for evaluation of an elevated heart rate. She has a history of atrial fibrillation. She states she felt her heart racing and palpitations since last night. She denies any associated chest pain. She denies any associated shortness of breath but does complain of some very mild d yspnea on exertion. She has been taking her medications as prescribed. She does have a history of atrial fibrillation. She saw her doctor sent her to the ED for further evaluation. - Related Data Allergies/Adverse Reactions: Penicillins Allergy (Verified 11/03/18 17:02) Past Medical History - General Information source: Patient - Social History Smoking Status: Unknown if Ever Smoked Family History: Hypertension Patient has suicidal ideation: No Patient has homicidal ideation: No - Past Medical History Cardiac Medical History: Reports: Hx Atrial Fibrillation, Hx Hypertension Renal/ Medical History: Denies: Hx Peritoneal Dialysis Review of Systems - Review of Systems Constitutional: No symptoms reported EENT: No symptoms reported Cardiovascular: See HPI Respiratory: See HPI Gastrointestinal: No symptoms reported Genitourinary: No symptoms reported Musculoskeletal: No symptoms reported Skin: No symptoms reported Neurological/Psychological: No symptoms reported Physical Exam - Vital signs Vitals: Temp Pulse Resp BP Pulse Ox 97.9 F 129 H 26 H 135/78 H 94 11/03/18 17:15 11/03/18 17:15 11/03/18 17:15 11/03/18 17:15 11/03/18 17:15 - Notes Notes: Vital signs reviewed, please refer to chart. Patient is normocephalic, atraumatic. Pupils equal round, reactive to light. Neck is supple without m eningismus. Heart is irregularly irregular and tachycardic. Lungs are clear to auscultation bilaterally. Abdomen is soft, nontender, normoactive bowel sounds throughout. Extremities without cyanosis, clubbing. 1+ pitting edema noted to the bilateral shins, no posterior calf tenderness. Peripheral pulses are equal. Skin is warm and dry. Patient is awake, alert, neurological exam is nonfocal. Course - Re-evaluation Re-evalutation: 11/03/18 22:16 Patient presents emergency department for evaluation. She had some palpitations but otherwise was asymptomatic. She was placed on a media monitor. She was started on Cardizem via bolus and drip. The drip did need to be titrated up to control the patient's heart rate. While at rest her heart rate remained between 95 and 110, but the slightest movement and the patient's heart rate did go up to 125. Again she remained asymptomatic throughout the course of these. She is already on Pradaxa. She is actually on sotalol and Coreg. At this point I do suspect she will need medication adjustment and as an inpatient. She was amenable to this plan. I spoke with Dr. Gilmore at 2150, he will admit the patient for further care. - Vital Signs Vital signs: Temp Pulse Resp BP Pulse Ox 97.9 F 129 H 16 119/92 H 100 11/03/18 17:15 11/03/18 17:15 11/03/18 21:01 11/03/18 21:01 11/03/18 21:01 - Laboratory Result Diagrams: 11/03/18 18:04 11/03/18 18:04 Laboratory results interpreted by me: 11/03/18 18:04 RDW 15.7 H Discharge - Discharge Clinical Impression: Rapid atrial fibrillation Condition: Stable Disposition: ADMITTED OBSERVATION Admitting Provider: Fatimah Gilmore Unit Admitted: [facility]
[2018-11-03] MEDS ORDERED: METOPROLOL TARTRATE PF/INJ 5 MG/5 ML SDV IV ONE (22:30)
[2018-11-03] MEDS: DILTIAZEM HCL/D5W 125 MG/125 ML RTUINJ IV PRN (22:44)
[2018-11-04] MEDS: POTASSI CL 20 MEQ/50 ML RIDER 20 MEQ/50 ML RTUPB IV SCH ×2 (00:04→01:10)
[2018-11-04 01:36] LABS: ANION GAP 9 (5-19); BLOOD UREA NITROGEN 12 mg/dL (7-20); CALCIUM 9.7 mg/dL (8.4-10.2); CARBON DIOXIDE 22 mmol/L (22-30); CHLORIDE 109 mmol/L (98-107); GLUCOSE 108 mg/dL (75-110); SODIUM 139.9 mmol/L (137-145)
[2018-11-04] MEDS: DILTIAZEM HCL/D5W 125 MG/125 ML RTUINJ IV PRN (04:42)
--- NOTE | 2018-11-04 05:27 | PDOC H&P ---
History of Present Illness Admission Date/PCP: 11/03/18 22:11 CRIS PICKARD MD Patient complains of: Palpitations History of Present Illness: BART MA is a 58 year old female who is a patient of Dr. Jose Salinas with a history of morbid obesity, dyslipidemia, hypertension and paroxysmal atrial fibrillation on Pradaxa, sotalol, Coreg, and diltiazem. She presents with symptoms of palpitations and found to have an irregular heart rate in the 130s prompting evaluation emergency room and started on IV Cardizem and referred to the hospitalist for admission. Patient denies chest pain nausea vomiting or abdominal pain. She denies missing any medications new [id number] medications admits to possible excessive caffeine. She denies a history of obstructive sleep apnea but risk factors are present. Past Medical History Cardiac Medical History: Reports: Atrial Fibrillation, Hypertension Past Surgical History Past Surgical History: Reports: Cholecystectomy Social History Information Source: Patient, Emergency Med Personnel, [facility] Smoking Status: Never Smoker Frequency of Alcohol Use: None Drugs: None - Advance Directive Resuscitation Status: Full Code Family History Family History: Hypertension Parental Family History Reviewed: Yes Children Family History Reviewed: Yes Sibling(s) Family History Reviewed.: Yes Medication/Allergy Allergies/Adverse Reactions: Penicillins Allergy (Verified 11/03/18 17:02) Review of Systems Constitutional: ABSENT: chills, fever(s), headache(s), weight gain, weight loss Eyes: ABSENT: visual disturbances Ears: ABSENT: hearing changes Cardiovascular: ABSENT: chest pain, dyspnea on exertion, edema, orthropnea, palpitations Respiratory: ABSENT: cough, hemoptysis Gastrointestinal: ABSENT: abdominal pain, constipation, diarrhea, hematemesis, h ematochezia, nausea, vomiting Genitourinary: ABSENT: dysuria, hematuria Musculoskeletal: ABSENT: joint swelling Integumentary: ABSENT: rash, wounds Neurological: ABSENT: abnormal gait, abnormal speech, confusion, dizziness, focal weakness, syncope Psychiatric: ABSENT: anxiety, depression, homidical ideation, suicidal ideation Endocrine: ABSENT: cold intolerance, heat intolerance, polydipsia, polyuria Hematologic/Lymphatic: ABSENT: easy bleeding, easy bruising Physical Exam Vital Signs: Temp Pulse Resp BP Pulse Ox 98.2 F 97 16 104/77 100 11/04/18 03:45 11/04/18 04:29 11/04/18 03:45 11/04/18 04:29 11/04/18 03:45 Intake & Output 11/02/18 11/03/18 11/04/18 11:59 11:59 11:59 Intake Total 185 Output Total 0 Balance 185 Weight 119.8 kg General appearance: PRESENT: no acute distress, well-developed, well-nourished Head exam: PRESENT: atraumatic, normocephalic Eye exam: PRESENT: conjunctiva pink, EOMI, PERRLA. ABSENT: scleral icterus Ear exam: PRESENT: normal external ear exam Mouth exam: PRESENT: moist, tongue midline Neck exam: ABSENT: carotid bruit, JVD, lymphadenopathy, thyromegaly Respiratory exam: PRESENT: clear to auscultation shannon. ABSENT: rales, rhonchi, wheezes Cardiovascular exam: PRESENT: irregular rhythm, tachycardia. ABSENT: diastolic murmur, rubs, systolic murmur Pulses: PRESENT: normal dorsalis pedis pul Vascular exam: PRESENT: normal capillary refill GI/Abdominal exam: PRESENT: normal bowel sounds, soft. ABSENT: distended, guarding, mass, organolmegaly, rebound, tenderness Rectal exam: PRESENT: deferred Extremities exam: PRESENT: full ROM. ABSENT: calf tenderness, clubbing, pedal edema Neurological exam: PRESENT: alert, awake, oriented to person, oriented to place, oriented to time, oriented to situation, CN II-XII grossly intact. ABSENT: motor sensory deficit Psychiatric exam: PRESENT: appropriate affect, normal mood. ABSENT: homicidal ideation, suicidal ideation Skin exam: PRESENT: dry, intact, warm. ABSENT: cyanosis, rash Results Laboratory Results: 11/03/18 18:04 11/04/18 00:36 11/03/18 11/03/18 11/03/18 18:04 18:04 18:04 WBC 6.4 RBC 4.59 Hgb 12.9 Hct 38.1 MCV 83 MCH 28.2 MCHC 33.9 RDW 15.7 H Plt Count 358 Seg Neutrophils % 57.6 Lymphocytes % 27.0 Monocytes % 10.9 Eosinophils % 3.6 Basophils % 0.9 Absolute Neutrophils 3.7 Absolute Lymphocytes 1.7 Absolute Monocytes 0.7 Absolute Eosinophils 0.2 Absolute Basophils 0.1 Sodium 139.6 Potassium 3.7 Chloride 106 Carbon Dioxide 25 Anion Gap 9 BUN 13 Creatinine 0.89 Est GFR ( Amer) > 60 Est GFR (Non-Af Amer) > 60 Glucose 104 Calcium 10.2 Magnesium 2.2 Total Bilirubin 0.6 AST 34 ALT 27 Alkaline Phosphatase 89 Total Protein 8.1 Albumin 4.2 TSH 0.75 11/04/18 00:36 WBC RBC Hgb Hct MCV MCH MCHC RDW Plt Count Seg Neutrophils % Lymphocytes % Monocytes % Eosinophils % Basophils % Absolute Neutrophils Absolute Lymphocytes Absolute Monocytes Absolute Eosinophils Absolute Basophils Sodium 139.9 Potassium 4.0 Chloride 109 H Carbon Dioxide 22 Anion Gap 9 BUN 12 Creatinine 0.73 Est GFR ( Amer) > 60 Est GFR (Non-Af Amer) > 60 Glucose 108 Calcium 9.7 Magnesium Total Bilirubin AST ALT Alkaline Phosphatase Total Protein Albumin TSH 11/03/18 11/04/18 18:04 00:36 Troponin I 0.017 0.012 Impressions: Chest X-Ray 11/03/18 17:50 IMPRESSION: Borderline cardiomegaly without pulmonary edema. Hiatal hernia. Assessment and Plan - Diagnosis (1) Rapid atrial fibrillation Is this a current diagnosis for this admission?: Yes Plan: IMCU admission, IV Cardizem, resume outpatient medication regiment with titration of IV as tolerated. Follow-up cardiac enzymes and TSH (2) Morbid obesity Is this a current diagnosis for this admission?: Yes Plan: Morbid obesity will evaluate for metabolic cause with evaluation of thyroid function and dietitian consultation (3) Obstructive sleep apnea Is this a current diagnosis for this admission?: Yes Plan: Suspected by body habitus. Suggest outpatient sleep study. - Time Time Spent with patient: 25-34 minutes - Inpatient Certification Medical Necessity: Need Close Monitoring Due to Risk of Patient Decompensation
[2018-11-04] MEDS ORDERED: DILTIAZEM HCL 60 MG TABLET PO SCH (12:00)
[2018-11-04] MEDS ORDERED: CHOLECALCIFEROL (D3) 1,000 UNIT TABLET PO SCH (15:00)
[2018-11-04] MEDS ORDERED: PANTOPRAZOLE SODIUM 20 MG TABLET.DR PO SCH (15:00)
[2018-11-04] MEDS ORDERED: CARVEDILOL 6.25 MG TABLET PO SCH (15:00)
[2018-11-04] MEDS ORDERED: HYDROCHLOROTHIAZIDE 12.5 MG TABLET PO SCH (15:00)
[2018-11-04] MEDS ORDERED: LOSARTAN POTASSIUM 50 MG TABLET PO SCH (15:00)
--- NOTE | 2018-11-04 16:38 | PDOC PROGRESS REPORT ---
Subjective Progress Note for:: 11/04/18 Subjective:: No adverse events overnight. No new complaints. She was rate controlled on a Cardizem drip, and she decided to take all of her home medications that she had brought with her. She said that she was told in the emergency department she could take her home medications, and she said that 9 AM came around and know what is said anything to her so she took it upon herself to take all of her medications. She took Procardia, sotalol, telmisartan, HCTZ, carvedilol, and hydralazine. The good thing was that she converted to a sinus rhythm. Her blood pressure however was a little bit low, prompting an IV fluid bolus and stopping the Cardizem drip. She has been asymptomatic and her blood pressures have been stable. She understands now that she is not to take any of her medications that she brought from home with her, and that we would make adjustments on her inpatient medication regimen instead. Reason For Visit: AFIB MORBID OBESITY Physical Exam Vital Signs: Temp Pulse Resp BP Pulse Ox 98.0 F 77 16 104/53 L 100 11/04/18 15:15 11/04/18 15:15 11/04/18 15:15 11/04/18 15:15 11/04/18 15:15 Intake & Output 11/03/18 11/04/18 11/05/18 06:59 06:59 06:59 Intake Total 185 240 Output Total 0 Balance 185 240 Weight 119.8 kg General appearance: PRESENT: no acute distress, cooperative, morbidly obese Respiratory exam: PRESENT: clear to auscultation shannon, symmetrical, unlabored. ABSENT: accessory muscle use, crackles, prolonged expiratory phas, rhonchi, tachypnea, wheezes Cardiovascular exam: PRESENT: RRR, +S1, +S2 Pulses: PRESENT: normal carotid pulses Vascular exam: PRESENT: normal capillary refill GI/Abdominal exam: PRESENT: normal bowel sounds, soft. ABSENT: distended, guarding, rebound, tenderness Extremities exam: ABSENT: clubbing, pedal edema Musculoskeletal exam: PRESENT: normal inspection. ABSENT: deformity Neurological exam: PRESENT: alert, awake, oriented to person, oriented to place, oriented to time, oriented to situation Psychiatric exam: PRESENT: appropriate affect, normal mood Skin exam: PRESENT: dry, warm Results Laboratory Results: 11/03/18 18:04 11/04/18 00:36 11/03/18 11/03/18 11/03/18 18:04 18:04 18:04 WBC 6.4 RBC 4.59 Hgb 12.9 Hct 38.1 MCV 83 MCH 28.2 MCHC 33.9 RDW 15.7 H Plt Count 358 Seg Neutrophils % 57.6 Lymphocytes % 27.0 Monocytes % 10.9 Eosinophils % 3.6 Basophils % 0.9 Absolute Neutrophils 3.7 Absolute Lymphocytes 1.7 Absolute Monocytes 0.7 Absolute Eosinophils 0.2 Absolute Basophils 0.1 Sodium 139.6 Potassium 3.7 Chloride 106 Carbon Dioxide 25 Anion Gap 9 BUN 13 Creatinine 0.89 Est GFR ( Amer) > 60 Est GFR (Non-Af Amer) > 60 Glucose 104 Calcium 10.2 Magnesium 2.2 Total Bilirubin 0.6 AST 34 ALT 27 Alkaline Phosphatase 89 Total Protein 8.1 Albumin 4.2 TSH 0.75 11/04/18 00:36 WBC RBC Hgb Hct MCV MCH MCHC RDW Plt Count Seg Neutrophils % Lymphocytes % Monocytes % Eosinophils % Basophils % Absolute Neutrophils Absolute Lymphocytes Absolute Monocytes Absolute Eosinophils Absolute Basophils Sodium 139.9 Potassium 4.0 Chloride 109 H Carbon Dioxide 22 Anion Gap 9 BUN 12 Creatinine 0.73 Est GFR ( Amer) > 60 Est GFR (Non-Af Amer) > 60 Glucose 108 Calcium 9.7 Magnesium Total Bilirubin AST ALT Alkaline Phosphatase Total Protein Albumin TSH 11/03/18 11/04/18 11/04/18 18:04 00:36 07:03 Troponin I 0.017 0.012 < 0.012 11/04/18 13:17 Troponin I < 0.012 Impressions: Chest X-Ray 11/03/18 17:50 IMPRESSION: Borderline cardiomegaly without pulmonary edema. Hiatal hernia. Assessment and Plan - Diagnosis (1) Rapid atrial fibrillation Is this a current diagnosis for this admission?: Yes Plan: Resolved. Cardizem drip was discontinued. Pradaxa was resumed. Because her heart rate was in the 50s, I started her back on sotalol but cut the dose back from her home dose of 120 mg twice daily to 80 mg twice daily. Also, she is con comittently on carvedilol at home, and were not entirely sure why she is on 2 different beta blockers, but I cut the dose back from 25 mg twice a day which she is on at home down to 6.25 mg twice a day. Troponins were negative. (2) Hypertension Qualifiers: Hypertension type: essential hypertension Qualified Code(s): I10 - Esse ntial (primary) hypertension Is this a current diagnosis for this admission?: Yes Plan: As noted above, she is on Procardia, telmisartan, HCTZ, and hydralazine. I have stopped the hydralazine and the Procardia. She will resume her telmisartan and HCTZ tomorrow morning. (3) Morbid obesity Is this a current diagnosis for this admission?: Yes Plan: Encouraged lifestyle modification - Time Time Spent with patient: 25-34 minutes - Plan Summary Plan Summary: We will watch her overnight, and if her heart rate and blood pressure do okay on her adjusted medications, we might be able to send her home tomorrow.
[2018-11-04] MEDS: SOTALOL HCL 80 MG TABLET PO SCH ×2 (16:48→21:52)
[2018-11-04] MEDS ORDERED: CARVEDILOL 6.25 MG PO SCH (22:00)
[2018-11-04] MEDS ORDERED: SOTALOL HCL 80 MG PO SCH (22:00)
[2018-11-04] MEDS ORDERED: DABIGATRAN ETEXILATE 150 MG CAPSULE PO SCH (22:00)
[2018-11-05] MEDS ORDERED: (PENDING PHARMACY ID) (Telmisartan/Hydrochlorothiazid [Telmisartan-Hctz 80-12.5 Mg Tb] 1 T PO SCH (10:00)
[2018-11-05] MEDS ORDERED: (PENDING PHARMACY ID) (Cholecalciferol (Vitamin D3) [Vitamin D3] 5,000 UNIT) PO SCH (10:00)
[2018-11-05] MEDS ORDERED: SIMVASTATIN 40 MG TABLET PO SCH (10:00)
[2018-11-05 13:59] VITALS: BP 97/62
--- NOTE | 2018-11-05 16:35 | PDOC DISCHARGE SUMMARY ---
General - Admit/Disc Date/PCP Admission Date/Primary Care Provider: 11/03/18 22:11 CRIS PICKARD MD Discharge Date: 11/05/18 - Discharge Diagnosis (1) Rapid atrial fibrillation Is this a current diagnosis for this admission?: Yes Summary: She was initially placed on a Cardizem drip, and she took all of her home medications in addition to being on the Cardizem drip and got bradycardic but she went back into a sinus rhythm. We took her off the Cardizem drip and kept her on her home medications and she stayed in a sinus rhythm. She continues on Pradaxa. (2) Hypertension Is this a current diagnosis for this admission?: Yes Summary: Blood pressures were actually low, so we took her off of her Procardia and her hydralazine and her blood pressures remained well within the normal range. (3) Morbid obesity Is this a current diagnosis for this admission?: Yes Summary: Strongly encouraged lifestyle modification. - Additional Information Resuscitation Status: Full Code Discharge Diet: Cardiac Discharge Activity: Activity As Tolerated Prescriptions: Carvedilol [Coreg 6.25 mg Tablet] 6.25 mg PO DAILY #30 tablet Sotalol HCl [Betapace 80 mg Tablet] 80 mg PO Q12 #60 tablet Home Medications: Aspirin/Acetaminophen/Caffeine [Goody's Ex-Str Powder Packet] 1 packet PO Q4HP PRN 11/04/18 Cholecalciferol (Vitamin D3) [Vitamin D3] 5,000 unit PO DAILY 11/04/18 Dabigatran Etexilate Mesylate [Pradaxa 150 mg Capsule] 150 mg PO Q12 11/04/18 Omeprazole Magnesium [Prilosec Otc] 20 mg PO DAILY 11/04/18 Potassium Chloride [K-Tab ER] 20 meq PO DAILY 11/04/18 Simvastatin [Zocor 40 mg Tablet] 40 mg PO DAILY 11/04/18 Telmisartan/Hydrochlorothiazid [Telmisartan-Hctz 80-12.5 mg Tb] 1 tab PO DAILY 11/04/18 Carvedilol [Coreg 6.25 mg Tablet] 6.25 mg PO DAILY #30 tablet 11/05/18 Sotalol HCl [Betapace 80 mg Tablet] 80 mg PO Q12 #60 tablet 11/05/18 History of Present Illness History of Present Illness: BART MA is a 58 year old female who is a patient of Dr. Jose Salinas with a history of morbid obesity, dyslipidemia, hypertension and paroxysmal atrial fibrillation on Pradaxa, sotalol, Coreg, and diltiazem. She presents with symptoms of palpitations and found to have an irregular heart rate in the 130s prompting evaluation emergency room and started on IV Cardizem and referred to the hospitalist for admission. Patient denies chest pain nausea vomiting or abdominal pain. She denies missing any medications new [id number] medications admits to possible excessive caffeine. She denies a history of obstructive sleep apnea but risk factors are present. Hospital Course Hospital Course: She was put on a Cardizem drip, heart rate became better controlled, and then the next morning without our knowledge without consulting with the nursing staff, the patient took all of her home medications. She became transiently bradycardic and hypotensive, but she was asymptomatic. She did convert to a sinus rhythm, however. We took her off of the Cardizem drip, restarted her Pradaxa, start her back on a reduced dose of sotalol at 80 mg twice a day down from 120 mg twice a day, and started her back on Coreg 6.25 mg once a day instead of the 25 mg twice a day she was on and her heart rate remained this morning in the 60s. We discontinued her Procardia and her hydralazine and her blood pressure this morning was in the 120s systolic. We updated her home medication reconciliation and gave her a copy of it. New prescriptions were provided for her new doses of sotalol and Coreg. Her labs and examination were reassuring and she was discharged in good condition. Physical Exam Vital Signs: Temp Pulse Resp BP Pulse Ox 97.7 F 60 16 97/62 L 100 11/05/18 13:58 11/05/18 13:58 11/05/18 13:58 11/05/18 13:58 11/05/18 13:58 Intake & Output 11/04/18 11/05/18 11/06/18 06:59 06:59 06:59 Intake Total 185 1110 100 Output Total 0 Balance 185 1110 100 Weight 119.8 kg 118.8 kg General appearance: PRESENT: no acute distress, cooperative, morbidly obese Respiratory exam: PRESENT: clear to auscultation shannon, symmetrical, unlabored. ABSENT: accessory muscle use, crackles, prolonged expiratory phas, rhonchi, tachypnea, wheezes Cardiovascular exam: PRESENT: RRR, +S1, +S2 Pulses: PRESENT: normal carotid pulses Vascular exam: PRESENT: normal capillary refill GI/Abdominal exam: PRESENT: normal bowel sounds, soft. ABSENT: distended, guarding, rebound, tenderness Extremities exam: ABSENT: clubbing, pedal edema Musculoskeletal exam: PRESENT: normal inspection. ABSENT: deformity Neurological exam: PRESENT: alert, awake, oriented to person, oriented to place, oriented to time, oriented to situation Psychiatric exam: PRESENT: appropriate affect, normal mood Skin exam: PRESENT: dry, warm Results Laboratory Results: 11/03/18 18:04 11/04/18 00:36 11/03/18 11/04/18 11/04/18 18:04 00:36 07:03 Troponin I 0.017 0.012 < 0.012 11/04/18 13:17 Troponin I < 0.012 Impressions: Chest X-Ray 11/03/18 17:50 IMPRESSION: Borderline cardiomegaly without pulmonary edema. Hiatal hernia. Qualifiers - * PATIENT BEING DISCHARGED WITH ANY OF THE FOLLOWING DIAGNOSIS: No
== END 2018-11-05 16:07 | disposition home or self-care (01) | DRG 309 ==
LOC: ER 16:57 → EH 22:11 → 3N 23:27
PROVIDERS: ADMIT Internal Medicine; ATTEND Internal Medicine
DX: I48.0 Paroxysmal atrial fibrillation (principal); Z68.42 Body mass index [BMI] 45.0-49.9, adult; E78.5 Hyperlipidemia, unspecified; E66.01 Morbid (severe) obesity due to excess calories; I10 Essential (primary) hypertension; R00.1 Bradycardia, unspecified; Z79.01 Long term (current) use of anticoagulants; Z82.49 Family history of ischemic heart disease and other diseases of the circulatory system; Z88.0 Allergy status to penicillin
CPT/HCPCS: 36415; 71045; 80048; 80053; 83735; 84443; 84484; 85025; 93005; 93010; J3480; J3490

== ENCOUNTER 2018-11-14 21:31 | Emergency (ER) | payer BC ==
[2018-11-14] MEDS ORDERED: ONDANSETRON HCL INJ/PF 4 MG/2 ML SDV IV ONE (22:20)
[2018-11-14] MEDS ORDERED: NORMAL SALINE 1000 ML 1,000 ML IV ONE (22:20)
[2018-11-14] MEDS ORDERED: SOTALOL HCL 80 MG TABLET PO ONE (22:28)
--- NOTE | 2018-11-14 22:28 | ER Document Report ---
ED General - General Chief Complaint: Back Pain Stated Complaint: DEHYDRATED/LOWER BACK PAIN Time Seen by Provider: 11/14/18 22:08 Primary Care Provider: FRANKY CROWLEY MD [Primary Care Provider] - Follow up in 3-5 days TRAVEL OUTSIDE OF THE [place] IN LAST 30 DAYS: No - HPI Notes: Patient is a 58-year-old female that presents to the emergency department for chief complaint of dehydration. Patient reports poor appetite, nausea and vomiting over the last 4-5 days. She states that she had one episode of diarrhea at onset of symptoms but that has since stopped. She denies any associated fevers or abdominal pain. She states she vomits after taking her medications. She does states she feels hungry now and has not vomited in over 24 hours. She came in today because she felt generalized weakness and fatigue from what she feels is dehydration. She has been drinking Gatorade and water. She has not taken her evening medications Past Medical History: Atrial fibrillation, hypertension Past Surgical History: Reviewed in chart Social History: Denies drugs alcohol or tobacco Family History: Reviewed and noncontributory for presenting illness Allergies: Reviewed, see documented allergy list. REVIEW OF SYSTEMS: CONSTITUTIONAL : No fever No chills No diaphoresis No recent illness Fatigue EENT: No vision changes No congestion No sore throat CARDIOVASCULAR: No chest pain No palpitations RESPIRATORY: No shortness of breath No cough No difficulty breathing GASTROINTESTINAL: No abdominal pain nausea vomiting diarrhea GENITOURINARY: No dysuria No hematuria No difficulty urinating MUSCULOSKELETAL: No back pain No leg pain No arm pain SKIN: No rashes No lesions LYMPHATIC: No swollen, enlarged glands. NEUROLOGICAL: No lightheadedness No headache No weakness No paresthesias PSYCHIATRIC: No anxiety No depression PHYSICAL EXAMINATION: Vital signs reviewed, nursing noted reviewed. GENERAL: Well-appearing, well-nourished and in no acute distress. HEAD: Atraumatic, normocephalic. EYES: Eyes appear normal, extraocular movements intact, sclera anicteric, conjunctiva are normal. ENT: nares patent, oropharynx clear without exudates. Mildly dry mucous membranes. NECK: Normal range of motion, supple without lymphadenopathy LUNGS: Breath sounds clear to auscultation bilaterally and equal. No wheezes rales or rhonchi. HEART: Regular rate and rhythm without murmurs ABDOMEN: Soft, nontender, normoactive bowel sounds. No rebound, guarding, or rigidity. No masses appreciated. EXTREMITIES: Nontender, good range of motion, no pitting or edema. NEUROLOGICAL: No focal neurological deficits. Moves all extremities spontaneously Motor and sensory grossly intact on exam. PSYCH: Normal mood, normal affect. SKIN: Warm, Dry, normal turgor, no rashes or lesions noted on exposed skin - Related Data Allergies/Adverse Reactions: Penicillins Allergy (Verified 11/14/18 21:34) Past Medical History - Social History Smoking Status: Never Smoker Family History: Hypertension - Past Medical History Cardiac Medical History: Reports: Hx Atrial Fibrillation, Hx Hypertension Renal/ Medical History: Denies: Hx Peritoneal Dialysis Past Surgical History: Reports: Hx Cholecystectomy Physical Exam - Vital signs Vitals: Temp Pulse Resp BP Pulse Ox 99.2 F 68 18 143/102 H 97 11/14/18 22:01 11/14/18 22:01 11/14/18 22:01 11/14/18 22:01 11/14/18 22:01 Course - Re-evaluation Re-evalutation: 11/14/18 22:27 Vitals reviewed. Nursing notes reviewed. Patient is well-appearing and hemodynamically stable. She does have elevated blood pressure reading but has not taken her evening BP medications. She will be given IV fluids and Zofran for symptom medic management. 11/15/18 00:13 Patient does feel better after IV fluids. Urinalysis is negative for infection. She has no acute leukocytosis. She does have some mild hypokalemia which was replaced in the ER. Patient's renal function is appropriate. She will be given Zofran to help with her nausea at home. She was counseled on hydration and return precautions. Overall her symptoms of nausea and vomiting have improved today and she has not had emesis in 24 hours. Laboratory 11/14/18 11/14/18 11/14/18 23:01 23:16 23:16 WBC 11.7 H RBC 5.07 Hgb 14.0 Hct 41.9 MCV 83 MCH 27.6 MCHC 33.5 RDW 15.6 H Plt Count 295 Seg Neutrophils % 66.7 Lymphocytes % 15.4 Monocytes % 12.7 Eosinophils % 4.3 Basophils % 0.9 Absolute Neutrophils 7.8 Absolute Lymphocytes 1.8 Absolute Monocytes 1.5 H Absolute Eosinophils 0.5 Absolute Basophils 0.1 Sodium 139.3 Potassium 3.0 L* Chloride 97 L Carbon Dioxide 31 H Anion Gap 11 BUN 16 Creatinine 0.95 Est GFR ( Amer) > 60 Est GFR (Non-Af Amer) > 60 Glucose 109 Calcium 9.8 Total Bilirubin 1.3 Direct Bilirubin 0.3 Neonat Total Bilirubin Not Reportable Neonat Direct Bilirubin Not Reportable Neonat Indirect Bili Not Reportable AST 96 H ALT 71 H Alkaline Phosphatase 86 Total Protein 8.3 H Albumin 4.1 Lipase 28.9 Urine Color YELLOW Urine Appearance SLIGHTLY-CLOUDY Urine pH 7.0 Ur Specific [place] 1.014 Urine Protein 30 H Urine Glucose (UA) NEGATIVE Urine Ketones NEGATIVE Urine Blood MODERATE H Urine Nitrite NEGATIVE Urine Bilirubin NEGATIVE Urine Urobilinogen 4.0 H Ur Leukocyte Esterase NEGATIVE Urine WBC (Auto) 6 Urine RBC (Auto) 14 U Hyaline Cast (Auto) 4 Urine Bacteria (Auto) 1+ Squamous Epi Cells Auto 11 Urine Mucus (Auto) RARE Urine Ascorbic Acid NEGATIVE She is stable at discharge. - Vital Signs Vital signs: Temp Pulse Resp BP Pulse Ox 99.2 F 56 L 22 H 152/90 H 99 11/14/18 22:01 11/14/18 23:21 11/14/18 23:21 11/14/18 23:21 11/14/18 23:21 - Laboratory Result Diagrams: 11/14/18 23:16 11/14/18 23:16 Laboratory results interpreted by me: 11/14/18 11/14/18 11/14/18 23:01 23:16 23:16 WBC 11.7 H RDW 15.6 H Absolute Monocytes 1.5 H Potassium 3.0 L* Chloride 97 L Carbon Dioxide 31 H AST 96 H ALT 71 H Total Protein 8.3 H Urine Protein 30 H Urine Blood MODERATE H Urine Urobilinogen 4.0 H Discharge - Discharge Clinical Impression: Hypokalemia, Dehydration Nausea and vomiting Qualifiers: Vomiting type: unspecified Vomiting Intractability: non-intractable Qualified Code(s): R11.2 - Nausea with vomiting, unspecified Condition: Stable Disposition: HOME, SELF-CARE Instructions: Hypokalemia ([facility]), Vomiting ([facility]) Additional Instructions: Please return to the emergency department if you have any worsening, or concern of your symptoms. Please return to the emergency department if you develop chest pain, difficulty breathing, severe abdominal pain, or ongoing vomiting. Please follow-up with your primary care physician in 2-3 days and any other recommended physicians. If prescribed, take all medications as directed. If you have any questions or concerns do not hesitate to return the emergency department for evaluation. Prescriptions: Ondansetron [Zofran Odt 4 mg Tablet] 1 tab PO Q4H PRN #15 tab.rapdis PRN Reason: For Nausea/Vomiting Referrals: FRANKY CROWLEY MD [Primary Care Provider] - Follow up in 3-5 days
[2018-11-14 23:35] LABS: ABSOLUTE BASOPHILS # (AUTO) 0.1 10^3/uL (0.0-0.2); ABSOLUTE EOSINOPHILS # (AUTO) 0.5 10^3/uL (0.0-0.6); ABSOLUTE LYMPHOCYTES (AUTO) 1.8 10^3/uL (0.5-4.7); ABSOLUTE MONOCYTES (AUTO) 1.5 10^3/uL (0.1-1.4); ABSOLUTE NEUT (AUTO) 7.8 10^3/uL (1.7-8.2); BASOPHILS % (AUTO) 0.9 % (0-2); EOSINOPHILS % (AUTO) 4.3 % (0-6); HEMATOCRIT 41.9 % (36.0-47.0); LYMPHOCYTES % (AUTO) 15.4 % (13-45); MEAN CORPUSCULAR HEMOGLOBIN 27.6 pg (27.0-33.4); MEAN CORPUSCULAR HGB CONC 33.5 g/dL (32.0-36.0); MEAN CORPUSCULAR VOLUME 83 fl (80-97); MONOCYTES % (AUTO) 12.7 % (3-13); PLATELET COUNT 295 10^3/uL (150-450); RED BLOOD COUNT 5.07 10^6/uL (3.72-5.28); RED CELL DISTRIBUTION WIDTH 15.6 % (11.5-14.0); SEGMENTED NEUTROPHILS % (AUTO) 66.7 % (42-78); TOTAL CELLS COUNTED % (AUTO) 100 %; WHITE BLOOD COUNT 11.7 10^3/uL (4.0-10.5)
[2018-11-14 23:54] LABS: ALANINE AMINOTRANSFERASE 71 U/L (9-52); ALBUMIN 4.1 g/dL (3.5-5.0); ALKALINE PHOSPHATASE 86 U/L (38-126); ANION GAP 11 (5-19); ASPARTATE AMINO TRANSFERASE 96 U/L (14-36); BILIRUBIN,DIRECT 0.3 mg/dL (0.0-0.4); BILIRUBIN,TOTAL 1.3 mg/dL (0.2-1.3); BLOOD UREA NITROGEN 16 mg/dL (7-20); CALCIUM 9.8 mg/dL (8.4-10.2); CARBON DIOXIDE 31 mmol/L (22-30); CHLORIDE 97 mmol/L (98-107); GLUCOSE 109 mg/dL (75-110); LIPASE 28.9 U/L (23-300); SODIUM 139.3 mmol/L (137-145); TOTAL PROTEIN 8.3 g/dL (6.3-8.2)
[2018-11-15] MEDS ORDERED: POTASSIUM CHLORIDE 10 MEQ CAPSULE.ER PO ONE (00:01)
[2018-11-15 00:06] LABS: APPEARANCE,URINE SLIGHTLY-CLOUDY; BILIRUBIN,URINE NEGATIVE (NEGATIVE); COLOR,URINE YELLOW; GLUCOSE, URINE NEGATIVE (NEGATIVE); KETONES,URINE NEGATIVE (NEGATIVE); LEUKOCYTE ESTERASE,URINE NEGATIVE (NEGATIVE); NITRITE,URINE NEGATIVE (NEGATIVE); PROTEIN,URINE 30 mg/dL (NEGATIVE); URINE SPECIFIC GRAVITY 1.014
[2018-11-15 00:32] VITALS: BP 137/88
== END 2018-11-15 00:33 | disposition home or self-care (01) ==
LOC: ER 21:31
DX: E87.6 Hypokalemia (principal); E86.0 Dehydration; R11.2 Nausea with vomiting, unspecified; M54.5 Low back pain; I48.91 Unspecified atrial fibrillation; I10 Essential (primary) hypertension; Z90.49 Acquired absence of other specified parts of digestive tract; Z88.0 Allergy status to penicillin
CPT/HCPCS: 99283; 96361; 96374; 36415; 83690; 85025; 80053; 81001; J2405; J7030

== ENCOUNTER → 2019-01-15 | Outpatient (CLI) | payer BC ==
[2019-01-15 09:18] LABS: ABSOLUTE EOSINOPHILS # (AUTO) 0.2 10^3/uL (0.0-0.6); ABSOLUTE LYMPHOCYTES (AUTO) 1.1 10^3/uL (0.5-4.7); ABSOLUTE MONOCYTES (AUTO) 0.5 10^3/uL (0.1-1.4); ABSOLUTE NEUT (AUTO) 2.4 10^3/uL (1.7-8.2); BASOPHILS % (AUTO) 0.7 % (0-2); EOSINOPHILS % (AUTO) 5.2 % (0-6); HEMATOCRIT 37.1 % (36.0-47.0); HEMOGLOBIN 12.1 g/dL (12.0-15.5); LYMPHOCYTES % (AUTO) 26.8 % (13-45); MEAN CORPUSCULAR HEMOGLOBIN 26.5 pg (27.0-33.4); MEAN CORPUSCULAR HGB CONC 32.7 g/dL (32.0-36.0); MEAN CORPUSCULAR VOLUME 81 fl (80-97); MONOCYTES % (AUTO) 11.1 % (3-13); PLATELET COUNT 288 10^3/uL (150-450); RED BLOOD COUNT 4.57 10^6/uL (3.72-5.28); RED CELL DISTRIBUTION WIDTH 16.3 % (11.5-14.0); SEGMENTED NEUTROPHILS % (AUTO) 56.2 % (42-78); TOTAL CELLS COUNTED % (AUTO) 100 %; WHITE BLOOD COUNT 4.3 10^3/uL (4.0-10.5)
[2019-01-15 09:33] LABS: APPEARANCE,URINE CLEAR; BILIRUBIN,URINE NEGATIVE (NEGATIVE); COLOR,URINE YELLOW; GLUCOSE, URINE NEGATIVE (NEGATIVE); KETONES,URINE NEGATIVE (NEGATIVE); LEUKOCYTE ESTERASE,URINE NEGATIVE (NEGATIVE); NITRITE,URINE NEGATIVE (NEGATIVE); PROTEIN,URINE NEGATIVE (NEGATIVE); URINE SPECIFIC GRAVITY 1.015; UROBILINOGEN,URINE NEGATIVE mg/dL (<2.0)
[2019-01-15 09:44] LABS: ALANINE AMINOTRANSFERASE 34 U/L (9-52); ALBUMIN 4.1 g/dL (3.5-5.0); ALKALINE PHOSPHATASE 76 U/L (38-126); ANION GAP 8 (5-19); ASPARTATE AMINO TRANSFERASE 31 U/L (14-36); BILIRUBIN,DIRECT 0.3 mg/dL (0.0-0.4); BILIRUBIN,TOTAL 0.5 mg/dL (0.2-1.3); BLOOD UREA NITROGEN 11 mg/dL (7-20); CALCIUM 9.9 mg/dL (8.4-10.2); CARBON DIOXIDE 27 mmol/L (22-30); CHLORIDE 107 mmol/L (98-107); GLUCOSE 87 mg/dL (75-110); POTASSIUM 3.7 mmol/L (3.6-5.0); TOTAL PROTEIN 7.4 g/dL (6.3-8.2)
== END ==
LOC: OD 08:34
PROVIDERS: ATTEND Internal Medicine Cardiovascular Disease
DX: K92.2 Gastrointestinal hemorrhage, unspecified (principal); D64.9 Anemia, unspecified; I10 Essential (primary) hypertension; I48.0 Paroxysmal atrial fibrillation; Z79.899 Other long term (current) drug therapy
CPT/HCPCS: 36415; 80048; 80076; 81001; 82272; 83735; 85025; 85730

== ENCOUNTER 2019-05-10 15:20 | Inpatient (IN) | payer BC ==
--- NOTE | 2019-05-10 16:00 | ER Document Report ---
ED Medical Screen (RME) - General Stated Complaint: IRREGULAR HEART RATE Time Seen by Provider: 05/10/19 15:56 Primary Care Provider: GUSTABO RODRIGUEZ MD [Primary Care Provider] - Follow up as needed TRAVEL OUTSIDE OF THE [place] IN LAST 30 DAYS: No - HPI Notes: 05/10/19 15:58 Patient is a 59-year-old female with a history of morbid obesity, dyslipidemia, hypertension and paroxysmal atrial fibrillation on Pradaxa and other heart rate/blood pressure medications who presents complaining of feeling irregularity in her heart and palpitations that began Friday morning. No fever or illness. No shortness of breath or trouble breathing. I have treated and performed a rapid initial assessment of this patient. A comprehensive ED assessment and evaluation of the patient, analysis of test results and completion of medical decision making process will be conducted by additional ED providers. PHYSICAL EXAMINATION: GENERAL: Well-appearing, well-nourished and in no acute distress. A&Ox4. Answers questions appropriately. Lungs: CTAB Heart: IRR - Related Data Allergies/Adverse Reactions: Penicillins Allergy (Verified 11/14/18 21:34) Past Medical History - Past Medical History Cardiac Medical History: Reports: Hx Atrial Fibrillation, Hx Hypertension Renal/ Medical History: Denies: Hx Peritoneal Dialysis Past Surgical History: Reports: Hx Cholecystectomy, Hx Hysterectomy Physical Exam - Vital signs Vitals: Temp Pulse Resp BP Pulse Ox 98.4 F 106 H 18 130/72 H 97 05/10/19 15:31 05/10/19 15:31 05/10/19 15:31 05/10/19 15:31 05/10/19 15:31 Course - Vital Signs Vital signs: Temp Pulse Resp BP Pulse Ox 98.4 F 106 H 18 130/72 H 97 05/10/19 15:31 05/10/19 15:31 05/10/19 15:31 05/10/19 15:31 05/10/19 15:31 Doctor's Discharge - Discharge Referrals: GUSTABO RODRIGUEZ MD [Primary Care Provider] - Follow up as needed
[2019-05-10 16:44] LABS: ABSOLUTE BASOPHILS # (AUTO) 0.1 10^3/uL (0.0-0.2); ABSOLUTE EOSINOPHILS # (AUTO) 0.1 10^3/uL (0.0-0.6); ABSOLUTE LYMPHOCYTES (AUTO) 2.1 10^3/uL (0.5-4.7); ABSOLUTE MONOCYTES (AUTO) 0.8 10^3/uL (0.1-1.4); ABSOLUTE NEUT (AUTO) 4.2 10^3/uL (1.7-8.2); BASOPHILS % (AUTO) 0.7 % (0-2); EOSINOPHILS % (AUTO) 0.9 % (0-6); HEMOGLOBIN 13.4 g/dL (12.0-15.5); LYMPHOCYTES % (AUTO) 29.1 % (13-45); MEAN CORPUSCULAR HEMOGLOBIN 26.9 pg (27.0-33.4); MEAN CORPUSCULAR HGB CONC 32.7 g/dL (32.0-36.0); MEAN CORPUSCULAR VOLUME 82 fl (80-97); MONOCYTES % (AUTO) 10.6 % (3-13); PLATELET COUNT 349 10^3/uL (150-450); RED BLOOD COUNT 4.98 10^6/uL (3.72-5.28); RED CELL DISTRIBUTION WIDTH 17.3 % (11.5-14.0); SEGMENTED NEUTROPHILS % (AUTO) 58.7 % (42-78); TOTAL CELLS COUNTED % (AUTO) 100 %; WHITE BLOOD COUNT 7.2 10^3/uL (4.0-10.5)
[2019-05-10 16:55] LABS: INTERNATIONAL RATION (INR) 1.63; PROTHROMBIN TIME 19.5 SEC (11.4-15.4)
[2019-05-10 16:57] LABS: PARTIAL THROMBOPLASTIN TIME 56.9 SEC (23.5-35.8)
[2019-05-10 17:16] LABS: ALBUMIN 4.1 g/dL (3.5-5.0); ALKALINE PHOSPHATASE 78 U/L (38-126); ANION GAP 10 (5-19); ASPARTATE AMINO TRANSFERASE 23 U/L (14-36); BILIRUBIN,DIRECT 0.2 mg/dL (0.0-0.4); BILIRUBIN,TOTAL 0.7 mg/dL (0.2-1.3); BLOOD UREA NITROGEN 16 mg/dL (7-20); CALCIUM 10.1 mg/dL (8.4-10.2); CARBON DIOXIDE 24 mmol/L (22-30); CHLORIDE 108 mmol/L (98-107); GLUCOSE 106 mg/dL (75-110); POTASSIUM 4.3 mmol/L (3.6-5.0); TOTAL PROTEIN 7.5 g/dL (6.3-8.2)
[2019-05-10 17:56] LABS: APPEARANCE,URINE CLEAR; BILIRUBIN,URINE NEGATIVE (NEGATIVE); COLOR,URINE YELLOW; GLUCOSE, URINE NEGATIVE (NEGATIVE); KETONES,URINE NEGATIVE (NEGATIVE); LEUKOCYTE ESTERASE,URINE NEGATIVE (NEGATIVE); NITRITE,URINE NEGATIVE (NEGATIVE); PROTEIN,URINE NEGATIVE (NEGATIVE); URINE SPECIFIC GRAVITY 1.013; UROBILINOGEN,URINE NEGATIVE mg/dL (<2.0)
--- NOTE | 2019-05-10 18:26 | RADIOLOGY REPORT (SQ) ---
EXAM DESCRIPTION: CHEST 2 VIEWS COMPLETED DATE/TIME: 05/10/2019 6:12 pm REASON FOR STUDY: palpitations COMPARISON: 11/03/2018 EXAM PARAMETERS: NUMBER OF VIEWS: two views TECHNIQUE: Digital Frontal and Lateral radiographic views of the chest acquired. RADIATION DOSE: NA LIMITATIONS: none FINDINGS: LUNGS AND PLEURA: No opacities, masses or pneumothorax. No pleural effusion. MEDIASTINUM AND HILAR STRUCTURES: No masses or contour abnormalities. HEART AND VASCULAR STRUCTURES: Enlarged cardiac silhouette, stable. Aortic atherosclerosis. BONES: No acute findings. HARDWARE: None in the chest. OTHER: Large hiatal hernia. IMPRESSION: Stable enlarged cardiac silhouette without edema. Large hiatal hernia, stable. TECHNICAL DOCUMENTATION: JOB ID: [id number] [employer]- All Rights Reserved Reading location - IP/workstation name: [email or web address]
[2019-05-10] MEDS ORDERED: DILTIAZEM HCL INJ 25 MG/5 ML VIAL IV ONE (19:57)
[2019-05-10] MEDS ORDERED: SOTALOL HCL 80 MG TABLET PO ONE (19:57)
[2019-05-10] MEDS ORDERED: DILTIAZEM HCL/D5W 125 MG/125 ML RTUINJ IV PRN ×2 (19:57→21:51)
[2019-05-10] MEDS ORDERED: CARVEDILOL 12.5 MG TABLET PO ONE (19:57)
--- NOTE | 2019-05-10 20:53 | ER Document Report ---
ED General - General Chief Complaint: Arrhythmia Stated Complaint: IRREGULAR HEART RATE Time Seen by Provider: 05/10/19 15:56 Primary Care Provider: GUSTABO RODRIGUEZ MD [Primary Care Provider] - Follow up as needed Notes: 59 year old female patient presents to the ED complaining of her heart being out of rhythm again. Patient states she has a history of atrial fibrillation and can feel when it is out. States that she has been feeling shaky and jittery in her chest since Friday and having increasing shortness of breath when she walks. Denies any chest pain. States that she just got back into town which is why she did not go to the doctor sooner for this jittery and rapid heart rate. Admits to some change in her medication approximately 2 months ago but no recent change in her medication. Has not run out of any of her medications recently, follows with Dr. Rodriguez normally. TRAVEL OUTSIDE OF THE [place] IN LAST 30 DAYS: No - Related Data Allergies/Adverse Reactions: Penicillins Allergy (Verified 05/10/19 16:01) Past Medical History - General Information source: Patient - Social History Smoking Status: Never Smoker Frequency of alcohol use: None Drug Abuse: None Family History: Hypertension Patient has suicidal ideation: No Patient has homicidal ideation: No - Past Medical History Cardiac Medical History: Reports: Hx Atrial Fibrillation, Hx Hypertension Renal/ Medical History: Denies: Hx Peritoneal Dialysis Past Surgical History: Reports: Hx Cholecystectomy, Hx Hysterectomy Review of Systems - Review of Systems Constitutional: No symptoms reported EENT: No symptoms reported Cardiovascular: See HPI, Palpitations, Heart racing. denies: Chest pain Respiratory: See HPI, Short of breath Gastrointestinal: No symptoms reported -: Yes All other systems reviewed and negative Physical Exam - Vital signs Vitals: Temp Pulse Resp BP Pulse Ox 98.4 F 106 H 18 130/72 H 97 05/10/19 15:31 05/10/19 15:31 05/10/19 15:31 05/10/19 15:31 05/10/19 15:31 Interpretation: Normal - Notes Notes: GENERAL: Alert, interacts well. No acute distress. HEAD: Normocephalic, atraumatic EYES: Pupils equal, round and reactive to light, extraocular movements intact. ENT: Oral mucosa moist, tongue midline. NECK: Full range of motion, supple, trachea midline. LUNGS: Clear to auscultation bilaterally, no wheezes, rales or rhonchi, no respiratory distress. HEART: Irregularly irregular, tachycardic, no murmurs or rubs. ABDOMEN: Soft, nontender, nondistended, bowel sounds present in all 4 quadrants. EXTREMITIES: Moves all 4 extremities spontaneously, no edema, radial and dorsalis pedis pulses 2/4 bilaterally. No cyanosis. NEUROLOGICAL: Alert and oriented x3, normal speech, biceps and patellar DTRs 2+ bilaterally. PSYCH: Normal mood, normal affect. SKIN: Warm, Dry, normal turgor, no rashes or lesions noted. Course - Re-evaluation Re-evalutation: 05/10/19 20:53 CBC unremarkable, INR somewhat prolonged, consistent with taking NOACs, CMP grossly unremarkable, troponin negative, TSH normal, urinalysis shows moderate blood but only 4 RBCs, 1+ bacteria, no urinary symptoms, chest x-ray shows no acute process, no evidence of failure, physical examination also shows no evidence of failure. Discussed patient with Dr. Rodriguez her setup operator who states that a few months ago on discharge from the hospital she had been decreased from her sotalol 160 twice daily down to 80 twice daily, states he had been somewhat concerned that she might start having tachydysrhythmias again. States he would give her dose of 160 mg of sotalol now, give her an IV bolus of Cardizem and started on a drip, if she converts well on that I can stop the drip and send her home on 160 of sotalol twice a day in addition to all of her other medications. And then he would have her follow-up with him in the office on for repeat EKG to recheck the QTC. Otherwise states she will need to be admitted. Discussed this with the patient patient is in agreement with this plan, quite happy with the idea that she might be able to be discharged to home. Patient actually responded very well to the bolus of Cardizem, currently she is sitting at A. fib in the low to mid 60s. There is no hypotension. If she remains stable for an hour then we will discontinue Cardizem drip and discharge her to home on the increased dose of sotalol. 05/10/19 21:17 05/10/19 21:[address] Rodriguez said, when I discussed the patient with him again he stated that the patient could only be discharged home if her rhythm normalize d back to normal sinus rhythm from atrial fibrillation, states that he is glad that the patient's rate has normalized but since she is still in atrial fibrillation she needs to be admitted and will need to be observed on monitor for up to 3 days while we are increasing her sotalol. Also recommends giving some Lasix given her elevated proBNP. Discussed this with Dr. Gilmore and with the patient and they are agreeable to admitting the patient to Dr. Gilmore service on IMCU. - Vital Signs Vital signs: Temp Pulse Resp BP Pulse Ox 98.4 F 106 H 11 L 140/89 H 77 L 05/10/19 15:31 05/10/19 15:31 05/10/19 21:02 05/10/19 21:02 05/10/19 21:00 - Laboratory Result Diagrams: 05/10/19 16:15 05/10/19 16:15 Laboratory results interpreted by me: 05/10/19 05/10/19 05/10/19 16:15 16:15 16:15 MCH 26.9 L RDW 17.3 H PT 19.5 H APTT 56.9 H Chloride 108 H Est GFR (MDRD) Non-Af 54 L NT-Pro-B Natriuret Pep Urine Blood 05/10/19 05/10/19 16:15 16:20 MCH RDW PT APTT Chloride Est GFR (MDRD) Non-Af NT-Pro-B Natriuret Pep 2380 H Urine Blood MODERATE H - EKG Interpretation by Me Additional EKG results interpreted by me: 05/10/19 21:50 EKG shows atrial fibrillation with a tachycardic rate at 119, 1 PVC, left axis deviation, no ST segment elevations or depressions per my interpretation. Critical Care Note - Critical Care Note Total time excluding time spent on procedures (mins): 35 Discharge - Discharge Clinical Impression: Atrial fibrillation with RVR, Elevated brain natriuretic peptide (BNP) level Condition: Good Disposition: ADMITTED INPATIENT Admitting Provider: Mando (Hospitalist) Unit Admitted: IMCU Referrals: GUSTABO RODRIGUEZ MD [Primary Care Provider] - Follow up as needed
[2019-05-10] MEDS ORDERED: FUROSEMIDE INJ/PF 20 MG/2 ML SDV IV ONE (21:20)
[2019-05-10] MEDS ORDERED: MAG HYDROX/AL HYDROX/SIMETH SUSP 30 ML UDCUP PO PRN (21:51)
[2019-05-10] MEDS ORDERED: ACETAMINOPHEN 325 MG TABLET PO PRN (21:51)
[2019-05-10 23:27] LABS: TROPONIN I < 0.012 ng/mL
--- NOTE | 2019-05-11 00:31 | EKG REPORT ---
SEVERITY:- ABNORMAL ECG - ATRIAL FIBRILLATION VENTRICULAR PREMATURE COMPLEX LEFT VENTRICULAR HYPERTROPHY BORDERLINE T ABNORMALITIES, INFERIOR LEADS : Confirmed by: Maria Guadalupe Forman MD 11-May-2019 00:30:56
--- NOTE | 2019-05-11 03:13 | PDOC H&P ---
History of Present Illness Admission Date/PCP: 05/10/19 22:00 GUSTABO RODRIGUEZ MD Patient complains of: Palpitations History of Present Illness: BART MA is a 59 year old female who is a patient of trawl net maker Dr. Gustabo Rachel with a history of obstructive sleep apnea, morbid obesity, dyslipidemia, hypertension and paroxysmal atrial fibrillation on Pradaxa, sot alol, Coreg and diltiazem. She presents with 4 days of palpitations prompting her to seek evaluation in the emergency room. She denies shortness of breath, nausea vomiting or chest pain. She denies recent change in medication regiment is otherwise felt well. In the emergency room she is found to have uncontrolled A. fib. And a BNP of 2300. Her trawl net maker was consulted recommending increasing sotalol from 80 mg to 160 mg p.o. twice daily and IV Cardizem. She is referred to the hospitalist for admission Past Medical History Cardiac Medical History: Reports: Atrial Fibrillation, Hypertension Past Surgical History Past Surgical History: Reports: Cholecystectomy, Hysterectomy Social History Information Source: Patient, [facility] Records Smoking Status: Never Smoker Frequency of Alcohol Use: None Hx Recreational Drug Use: No Drugs: None Hx Prescription Drug Abuse: No - Advance Directive Resuscitation Status: Full Code Family History Family History: Hypertension Parental Family History Reviewed: Yes Children Family History Reviewed: Yes Sibling(s) Family History Reviewed.: Yes Medication/Allergy Home Medications: Aspirin/Acetaminophen/Caffeine [Goody's Ex-Str Powder Packet] 1 packet PO Q4HP PRN 11/04/18 Cholecalciferol (Vitamin D3) [Vitamin D3] 5,000 unit PO DAILY 11/04/18 Dabigatran Etexilate Mesylate [Pradaxa 150 mg Capsule] 150 mg PO Q12 11/04/18 Omeprazole Magnesium [Prilosec Otc] 20 mg PO DAILY 11/04/18 Potassium Chloride [K-Tab ER] 20 meq PO DAILY 11/04/18 Simvastatin [Zocor 40 mg Tablet] 40 mg PO DAILY 11/04/18 Telmisartan/Hydrochlorothiazid [Telmisartan-Hctz 80-12.5 mg Tb] 1 tab PO DAILY 11/04/18 Carvedilol [Coreg 6.25 mg Tablet] 6.25 mg PO DAILY #30 tablet 11/05/18 Sotalol HCl [Betapace 80 mg Tablet] 80 mg PO Q12 #60 tablet 11/05/18 Ondansetron [Zofran Odt 4 mg Tablet] 1 tab PO Q4H PRN #15 tab.rapdis 11/15/18 Allergies/Adverse Reactions: Penicillins Allergy (Verified 05/10/19 16:01) Review of Systems Constitutional: ABSENT: chills, fever(s), headache(s), weight gain, weight loss Eyes: ABSENT: visual disturbances Ears: ABSENT: hearing changes Cardiovascular: ABSENT: chest pain, dyspnea on exertion, edema, orthropnea, palpitations Respiratory: ABSENT: cough, hemoptysis Gastrointestinal: ABSENT: abdominal pain, constipation, diarrhea, hematemesis, hematochezia, nausea, vomiting Genitourinary: ABSENT: dysuria, hematuria Musculoskeletal: ABSENT: joint swelling Integumentary: ABSENT: rash, wounds Neurological: ABSENT: abnormal gait, abnormal speech, confusion, dizziness, focal weakness, syncope Psychiatric: ABSENT: anxiety, depression, homidical ideation, suicidal ideation Endocrine: ABSENT: cold intolerance, heat intolerance, polydipsia, polyuria Hematologic/Lymphatic: ABSENT: easy bleeding, easy bruising Physical Exam Vital Signs: Temp Pulse Resp BP Pulse Ox 97.7 F 95 16 119/77 100 05/10/19 23:52 05/11/19 02:00 05/10/19 23:52 05/11/19 00:37 05/10/19 23:52 Intake & Output 05/09/19 05/10/19 05/11/19 11:59 11:59 11:59 Intake Total 0 Output Total 0 Balance 0 Weight 111 kg General appearance: PRESENT: no acute distress, well-developed, well-nourished Head exam: PRESENT: atraumatic, normocephalic Eye exam: PRESENT: conjunctiva pink, EOMI, PERRLA. ABSENT: scleral icterus Ear exam: PRESENT: normal external ear exam Mouth exam: PRESENT: moist, tongue midline Neck exam: ABSENT: carotid bruit, JVD, lymphadenopathy, thyromegaly Respiratory exam: PRESENT: clear to auscultation shannon. ABSENT: rales, rhonchi, wheezes Cardiovascular exam: PRESENT: irregular rhythm, tachycardia. ABSENT: diastolic murmur, rubs, systolic murmur Pulses: PRESENT: normal dorsalis pedis pul Vascular exam: PRESENT: normal capillary refill GI/Abdominal exam: PRESENT: normal bowel sounds, soft. ABSENT: distended, guarding, mass, organolmegaly, rebound, tenderness Rectal exam: PRESENT: deferred Extremities exam: PRESENT: full ROM. ABSENT: calf tenderness, clubbing, pedal edema Neurological exam: PRESENT: alert, awake, oriented to person, oriented to place, oriented to time, oriented to situation, CN II-XII grossly intact. ABSENT: motor sensory deficit Psychiatric exam: PRESENT: appropriate affect, normal mood. ABSENT: homicidal ideation, suicidal ideation Skin exam: PRESENT: dry, intact, warm. ABSENT: cyanosis, rash Results Laboratory Results: 05/10/19 16:15 05/10/19 16:15 05/10/19 05/10/19 05/10/19 16:15 16:15 16:15 WBC 7.2 RBC 4.98 Hgb 13.4 Hct 41.0 MCV 82 MCH 26.9 L MCHC 32.7 RDW 17.3 H Plt Count 349 Seg Neutrophils % 58.7 Sodium 141.9 Potassium 4.3 Chloride 108 H Carbon Dioxide 24 Anion Gap 10 BUN 16 Creatinine 1.03 Est GFR ( Amer) > 60 Glucose 106 Calcium 10.1 Magnesium 2.1 Total Bilirubin 0.7 AST 23 Alkaline Phosphatase 78 Total Protein 7.5 Albumin 4.1 TSH 2.29 Urine Color Urine Appearance Urine pH Ur Specific [place] Urine Protein Urine Glucose (UA) Urine Ketones Urine Blood Urine Nitrite Ur Leukocyte Esterase Urine WBC (Auto) Urine RBC (Auto) 05/10/19 05/10/19 05/10/19 16:15 16:15 16:20 WBC RBC Hgb Hct MCV MCH MCHC RDW Plt Count Seg Neutrophils % Sodium Potassium Chloride Carbon Dioxide Anion Gap BUN Creatinine Est GFR ( Amer) Glucose Calcium Magnesium 2.2 Total Bilirubin AST Alkaline Phosphatase Total Protein Albumin TSH 2.41 Urine Color YELLOW Urine Appearance CLEAR Urine pH 5.0 Ur Specific [place] 1.013 Urine Protein NEGATIVE Urine Glucose (UA) NEGATIVE Urine Ketones NEGATIVE Urine Blood MODERATE H Urine Nitrite NEGATIVE Ur Leukocyte Esterase NEGATIVE Urine WBC (Auto) 2 Urine RBC (Auto) 4 05/10/19 05/10/19 05/10/19 16:15 16:15 22:26 Creatine Kinase 155 H CK-MB (CK-2) Troponin I < 0.012 NT-Pro-B Natriuret Pep 2380 H 05/10/19 22:26 Creatine Kinase CK-MB (CK-2) 0.90 Troponin I < 0.012 NT-Pro-B Natriuret Pep Impressions: Chest X-Ray 05/10/19 16:00 IMPRESSION: Stable enlarged cardiac silhouette without edema. Large hiatal hernia, stable. Assessment and Plan - Diagnosis (1) Atrial fibrillation with RVR Is this a current diagnosis for this admission?: Yes Plan: IMCU admission, IV Cardizem, increased sotalol dose 160 mg p.o. twice daily. Follow-up a.m. EKG (2) Elevated brain natriuretic peptide (BNP) level Is this a current diagnosis for this admission?: Yes Plan: Secondary to #1, no evidence for volume overload (3) Hypertension Qualifiers: Is this a current diagnosis for this admission?: Yes Plan: Compensated continue outpatient regimen (4) Morbid obesity Is this a current diagnosis for this admission?: Yes Plan: Follow-up TSH (5) Obstructive sleep apnea Is this a current diagnosis for this admission?: Yes Plan: BiPAP ordered - Time Time Spent with patient: 25-34 minutes - Inpatient Certification Medical Necessity: Need Close Monitoring Due to Risk of Patient Decompensation
[2019-05-11 04:46] LABS: ABSOLUTE BASOPHILS # (AUTO) 0.1 10^3/uL (0.0-0.2); ABSOLUTE EOSINOPHILS # (AUTO) 0.1 10^3/uL (0.0-0.6); ABSOLUTE LYMPHOCYTES (AUTO) 1.7 10^3/uL (0.5-4.7); ABSOLUTE MONOCYTES (AUTO) 0.6 10^3/uL (0.1-1.4); ABSOLUTE NEUT (AUTO) 3.8 10^3/uL (1.7-8.2); EOSINOPHILS % (AUTO) 1.4 % (0-6); HEMATOCRIT 40.1 % (36.0-47.0); HEMOGLOBIN 12.8 g/dL (12.0-15.5); LYMPHOCYTES % (AUTO) 27.8 % (13-45); MEAN CORPUSCULAR HEMOGLOBIN 26.5 pg (27.0-33.4); MEAN CORPUSCULAR VOLUME 83 fl (80-97); MONOCYTES % (AUTO) 9.6 % (3-13); PLATELET COUNT 329 10^3/uL (150-450); RED BLOOD COUNT 4.84 10^6/uL (3.72-5.28); RED CELL DISTRIBUTION WIDTH 17.1 % (11.5-14.0); SEGMENTED NEUTROPHILS % (AUTO) 60.2 % (42-78); TOTAL CELLS COUNTED % (AUTO) 100 %; WHITE BLOOD COUNT 6.2 10^3/uL (4.0-10.5)
[2019-05-11 05:09] LABS: ANION GAP 6 (5-19); BLOOD UREA NITROGEN 15 mg/dL (7-20); CALCIUM 9.8 mg/dL (8.4-10.2); CARBON DIOXIDE 30 mmol/L (22-30); CHLORIDE 105 mmol/L (98-107); CREATINE KINASE 132 U/L (30-135); GLUCOSE 103 mg/dL (75-110); POTASSIUM 4.4 mmol/L (3.6-5.0)
[2019-05-11 05:16] LABS: CREATINE KINASE MB 1.03 ng/mL (<4.55)
[2019-05-11 05:24] LABS: TROPONIN I < 0.012 ng/mL
--- NOTE | 2019-05-11 09:38 | PDOC CONSULTATION ---
<CECE RODRIGUEZ - Last Filed: 05/11/19 09:18> Consultation Consult Date: 05/11/19 Provider Consulted: CECE RODRIGUEZ Consult reason:: Afib with RVR History of Present Illness Admission Date/PCP: 05/10/19 22:00 GUSTABO RODRIGUEZ MD Patient complains of: Irregular heart beat History of Present Illness: BART MA is a 59 year old female presented to ER after 4 days of irregular heart rhythm that begun after taking her meds late while traveling. Longstanding h/o paroxysmal Afib that is generally controlled on Sotalol. Currently, she has had a dose of Coreg 25mg, has been started back on Sotalol at 160mg q12h and is on Cardizem drip at 5 mg/hr. Heart rate has dropped down to low 100's at it's highest but remains in Afib. Denies complaints at this time, specifically does not have SOB and can tell her rate has improved. Past Medical History Cardiac Medical History: Reports: Atrial Fibrillation, Hypertension Past Surgical History Past Surgical History: Reports: Cholecystectomy, Hysterectomy Social History Smoking Status: Never Smoker Frequency of Alcohol Use: None Hx Recreational Drug Use: No Drugs: None Hx Prescription Drug Abuse: No - Advance Directive Resuscitation Status: Full Code Family History Family History: Hypertension Parental Family History Reviewed: No Children Family History Reviewed: NA Sibling(s) Family History Reviewed.: NA Medication/Allergy Home Medications: Carvedilol [Coreg 25 mg Tablet] 1 tab PO Q12 05/11/19 Cholecalciferol (Vitamin D3) [Vitamin D3] 5,000 unit PO DAILY 05/11/19 Dabigatran Etexilate Mesylate [Pradaxa 150 mg Capsule] 150 mg PO Q12 05/11/19 Diltiazem HCl [Cartia Xt] 120 mg PO DAILY 05/11/19 Potassium Chloride [Klor-Con 10 Meq Capsule ER] 20 meq PO DAILY 05/11/19 Simvastatin [Zocor 20 mg Tablet] 20 mg PO DAILY 05/11/19 Sotalol HCl [Betapace 80 mg Tablet] 80 mg PO DAILY 05/11/19 Telmisartan/Hydrochlorothiazid [Telmisartan-Hctz 80-12.5 mg Tb] 1 each PO DAILY 05/11/19 Allergies/Adverse Reactions: Penicillins Allergy (Verified 05/10/19 16:01) Review of Systems Constitutional: ABSENT: chills, fever(s), headache(s), weight gain, weight loss Eyes: ABSENT: visual disturbances Cardiovascular: PRESENT: edema Respiratory: ABSENT: cough, dyspnea, hemoptysis Gastrointestinal: ABSENT: abdominal pain, constipation, diarrhea, hematemesis, hematochezia, nausea, vomiting Genitourinary: ABSENT: dysuria, hematuria Musculoskeletal: ABSENT: joint swelling Integumentary: ABSENT: rash, wounds Neurological: ABSENT: abnormal gait, abnormal speech, confusion, dizziness, focal weakness, syncope Psychiatric: ABSENT: anxiety, depression, homidical ideation, suicidal ideation Endocrine: ABSENT: cold intolerance, heat intolerance, polydipsia, polyuria Hematologic/Lymphatic: ABSENT: easy bleeding, easy bruising Physical Exam Vital Signs: Temp Pulse Resp BP Pulse Ox 98.3 F 102 H 20 122/76 100 05/11/19 04:50 05/11/19 07:00 05/11/19 04:50 05/11/19 06:44 05/11/19 04:50 Intake & Output 05/10/19 05/11/19 05/12/19 06:59 06:59 06:59 Intake Total 550 Output Total 0 Balance 550 Weight 114.1 kg General appearance: PRESENT: no acute distress, morbidly obese, well-developed, well-nourished Head exam: PRESENT: atraumatic, normocephalic Eye exam: PRESENT: EOMI, PERRLA. ABSENT: scleral icterus Mouth exam: PRESENT: moist, tongue midline Neck exam: ABSENT: carotid bruit, JVD, lymphadenopathy, thyromegaly Respiratory exam: PRESENT: clear to auscultation shannon. ABSENT: rales, rhonchi, wheezes Cardiovascular exam: PRESENT: irregular rhythm, systolic murmur. ABSENT: diastolic murmur, rubs Pulses: PRESENT: normal dorsalis pedis pul Vascular exam: PRESENT: normal capillary refill GI/Abdominal exam: PRESENT: normal bowel sounds, soft. ABSENT: distended, guar ding, mass, organolmegaly, rebound, tenderness Rectal exam: PRESENT: deferred Extremities exam: PRESENT: full ROM, +1 edema. ABSENT: calf tenderness, clubbing Musculoskeletal exam: PRESENT: full ROM Neurological exam: PRESENT: alert, awake, oriented to person, oriented to place, oriented to time, oriented to situation, CN II-XII grossly intact. ABSENT: motor sensory deficit Psychiatric exam: PRESENT: appropriate affect, normal mood. ABSENT: homicidal ideation, suicidal ideation Skin exam: PRESENT: dry, intact, warm. ABSENT: cyanosis, rash Results Laboratory Results: 05/11/19 04:24 05/11/19 04:24 05/10/19 05/10/19 05/10/19 16:15 16:15 16:15 WBC 7.2 RBC 4.98 Hgb 13.4 Hct 41.0 MCV 82 MCH 26.9 L MCHC 32.7 RDW 17.3 H Plt Count 349 Seg Neutrophils % 58.7 Sodium 141.9 Potassium 4.3 Chloride 108 H Carbon Dioxide 24 Anion Gap 10 BUN 16 Creatinine 1.03 Est GFR ( Amer) > 60 Glucose 106 Calcium 10.1 Magnesium 2.1 Total Bilirubin 0.7 AST 23 Alkaline Phosphatase 78 Total Protein 7.5 Albumin 4.1 TSH 2.29 Urine Color Urine Appearance Urine pH Ur Specific [place] Urine Protein Urine Glucose (UA) Urine Ketones Urine Blood Urine Nitrite Ur Leukocyte Esterase Urine WBC (Auto) Urine RBC (Auto) 05/10/19 05/10/19 05/10/19 16:15 16:15 16:20 WBC RBC Hgb Hct MCV MCH MCHC RDW Plt Count Seg Neutrophils % Sodium Potassium Chloride Carbon Dioxide Anion Gap BUN Creatinine Est GFR ( Amer) Glucose Calcium Magnesium 2.2 Total Bilirubin AST Alkaline Phosphatase Total Protein Albumin TSH 2.41 Urine Color YELLOW Urine Appearance CLEAR Urine pH 5.0 Ur Specific [place] 1.013 Urine Protein NEGATIVE Urine Glucose (UA) NEGATIVE Urine Ketones NEGATIVE Urine Blood MODERATE H Urine Nitrite NEGATIVE Ur Leukocyte Esterase NEGATIVE Urine WBC (Auto) 2 Urine RBC (Auto) 4 05/11/19 05/11/19 04:24 04:24 WBC 6.2 RBC 4.84 Hgb 12.8 Hct 40.1 MCV 83 MCH 26.5 L MCHC 32.0 RDW 17.1 H Plt Count 329 Seg Neutrophils % 60.2 Sodium 141.3 Potassium 4.4 Chloride 105 Carbon Dioxide 30 Anion Gap 6 BUN 15 Creatinine 0.94 Est GFR ( Amer) > 60 Glucose 103 Calcium 9.8 Magnesium Total Bilirubin AST Alkaline Phosphatase Total Protein Albumin TSH Urine Color Urine Appearance Urine pH Ur Specific [place] Urine Protein Urine Glucose (UA) Urine Ketones Urine Blood Urine Nitrite Ur Leukocyte Esterase Urine WBC (Auto) Urine RBC (Auto) 05/10/19 05/10/19 05/10/19 16:15 16:15 22:26 Creatine Kinase 155 H CK-MB (CK-2) Troponin I < 0.012 NT-Pro-B Natriuret Pep 2380 H 05/10/19 05/11/19 05/11/19 22:26 04:24 04:24 Creatine Kinase 132 CK-MB (CK-2) 0.90 1.03 Troponin I < 0.012 < 0.012 NT-Pro-B Natriuret Pep Impressions: Chest X-Ray 05/10/19 16:00 IMPRESSION: Stable enlarged cardiac silhouette without edema. Large hiatal hernia, stable. Assessment & Plan - Diagnosis (1) Atrial fibrillation with RVR Is this a current diagnosis for this admission?: Yes Plan: 1. Continue Cardizem 5mg/hr IV until HR below 100, then D/C 2. Continue Sotalol 160mg PO q12h 3. Start Cardizem 120mg PO q12h 4. Resume Pradaxa 150mg PO q12h 5. Check u/a and occult stool (2) Hypertension Qualifiers: Hypertension type: unspecified Qualified Code(s): I10 - Essential (primary) hypertension Is this a current diagnosis for this admission?: Yes Plan: 1. Resume Micardis-HCT 80-12.5 PO daily. 2. Resume KlorCon 10 10meq, 2 tablets daily - Time Time Spent: 30 to 50 Minutes Medications reviewed and adjusted accordingly: Yes <GUSTABO RODRIGUEZ - Last Filed: 05/11/19 19:23> History of Present Illness Admission Date/PCP: 05/10/19 22:00 GUSTABO RODRIGUEZ MD History of Present Illness: BART MA is a 59 year old obese female has been generally controlled on Sotalol 80 mg bid, now on a Cardizem drip Physical Exam Vital Signs: Temp Pulse Resp BP Pulse Ox 98.2 F 50 L 16 111/54 L 100 05/11/19 15:12 05/11/19 15:12 05/11/19 15:12 05/11/19 15:12 05/11/19 15:12 Intake & Output 05/10/19 05/11/19 05/12/19 06:59 06:59 06:59 Intake Total 550 547 Output Total 0 Balance 550 547 Weight 114.1 kg Results Laboratory Results: 05/11/19 04:24 05/11/19 04:24 05/10/19 05/10/19 05/11/19 16:15 16:15 04:24 WBC 6.2 RBC 4.84 Hgb 12.8 Hct 40.1 MCV 83 MCH 26.5 L MCHC 32.0 RDW 17.1 H Plt Count 329 Seg Neutrophils % 60.2 Sodium Potassium Chloride Carbon Dioxide Anion Gap BUN Creatinine Est GFR ( Amer) Glucose Calcium Magnesium 2.2 TSH 2.41 05/11/19 04:24 WBC RBC Hgb Hct MCV MCH MCHC RDW Plt Count Seg Neutrophils % Sodium 141.3 Potassium 4.4 Chloride 105 Carbon Dioxide 30 Anion Gap 6 BUN 15 Creatinine 0.94 Est GFR ( Amer) > 60 Glucose 103 Calcium 9.8 Magnesium TSH 05/10/19 05/10/19 05/10/19 16:15 16:15 22:26 Creatine Kinase 155 H CK-MB (CK-2) Troponin I < 0.012 NT-Pro-B Natriuret Pep 2380 H 05/10/19 05/11/19 05/11/19 22:26 04:24 04:24 Creatine Kinase 132 CK-MB (CK-2) 0.90 1.03 Troponin I < 0.012 < 0.012 NT-Pro-B Natriuret Pep 05/11/19 05/11/19 14:00 14:00 Creatine Kinase 142 H CK-MB (CK-2) 1.11 Troponin I < 0.012 NT-Pro-B Natriuret Pep Impressions: Chest X-Ray 05/10/19 16:00
[2019-05-11] MEDS ORDERED: DILTIAZEM HCL/D5W 125 MG/125 ML RTUINJ IV PRN (09:46)
--- NOTE | 2019-05-11 09:56 | Progress Note ---
Provider Note Provider Note: 05/11/2019-patient admitted early a.m. I have evaluated patient evaluated laboratory database. Patient saw by cardiology this a.m. we will continue the recommendations at this time.
[2019-05-11] MEDS: POTASSIUM CHLORIDE 10 MEQ CAPSULE.ER PO SCH (10:45)
[2019-05-11] MEDS: DABIGATRAN ETEXILATE 150 MG CAPSULE PO SCH ×2 (10:45→21:14)
[2019-05-11] MEDS: SOTALOL HCL 80 MG TABLET PO SCH ×2 (10:45→21:14)
[2019-05-11] MEDS: LOSARTAN POTASSIUM 50 MG TABLET PO SCH (10:45)
[2019-05-11] MEDS: DILTIAZEM HCL 120 MG CAP.SR.24H PO SCH ×2 (10:45→21:14)
[2019-05-11 14:54] LABS: CREATINE KINASE MB 1.11 ng/mL (<4.55)
[2019-05-11 14:58] LABS: TROPONIN I < 0.012 ng/mL
[2019-05-11] MEDS: CARVEDILOL 12.5 MG TABLET PO SCH (17:18)
--- NOTE | 2019-05-11 20:59 | EKG REPORT ---
SEVERITY:- ABNORMAL ECG - ATRIAL FIBRILLATION LVH WITH SECONDARY REPOLARIZATION ABNORMALITY : Confirmed by: Maria Guadalupe Forman MD 11-May-2019 20:58:07
[2019-05-12 02:05] LABS: APPEARANCE,URINE CLEAR; BILIRUBIN,URINE NEGATIVE (NEGATIVE); COLOR,URINE YELLOW; GLUCOSE, URINE NEGATIVE (NEGATIVE); KETONES,URINE NEGATIVE (NEGATIVE); LEUKOCYTE ESTERASE,URINE NEGATIVE (NEGATIVE); NITRITE,URINE NEGATIVE (NEGATIVE); PROTEIN,URINE NEGATIVE (NEGATIVE); URINE SPECIFIC GRAVITY 1.016; UROBILINOGEN,URINE NEGATIVE mg/dL (<2.0)
[2019-05-12 05:38] LABS: HEMATOCRIT 40.4 % (36.0-47.0); HEMOGLOBIN 13.3 g/dL (12.0-15.5); MEAN CORPUSCULAR HGB CONC 32.9 g/dL (32.0-36.0); MEAN CORPUSCULAR VOLUME 82 fl (80-97); PLATELET COUNT 361 10^3/uL (150-450); RED BLOOD COUNT 4.92 10^6/uL (3.72-5.28); RED CELL DISTRIBUTION WIDTH 17.3 % (11.5-14.0); WHITE BLOOD COUNT 5.5 10^3/uL (4.0-10.5)
[2019-05-12 05:58] LABS: ANION GAP 10 (5-19); BLOOD UREA NITROGEN 20 mg/dL (7-20); CARBON DIOXIDE 24 mmol/L (22-30); CHLORIDE 107 mmol/L (98-107); GLUCOSE 113 mg/dL (75-110); POTASSIUM 4.4 mmol/L (3.6-5.0)
[2019-05-12] MEDS: DABIGATRAN ETEXILATE 150 MG CAPSULE PO SCH ×2 (09:11→22:05)
[2019-05-12] MEDS: DILTIAZEM HCL 120 MG CAP.SR.24H PO SCH (09:14)
[2019-05-12] MEDS: HYDROCHLOROTHIAZIDE 12.5 MG TABLET PO SCH (09:15)
[2019-05-12] MEDS: LOSARTAN POTASSIUM 50 MG TABLET PO SCH (09:15)
[2019-05-12] MEDS: CARVEDILOL 12.5 MG TABLET PO SCH ×2 (09:15→17:30)
[2019-05-12] MEDS: POTASSIUM CHLORIDE 10 MEQ CAPSULE.ER PO SCH (09:16)
[2019-05-12] MEDS: SOTALOL HCL 80 MG TABLET PO SCH ×2 (09:16→22:03)
--- NOTE | 2019-05-12 09:36 | PDOC PROGRESS REPORT ---
Subjective Progress Note for:: 05/12/19 Subjective:: 05/12/2019-no complaints Reason For Visit: AFIB Physical Exam Vital Signs: Temp Pulse Resp BP Pulse Ox 97.9 F 117 H 16 120/78 100 05/12/19 04:44 05/12/19 04:44 05/12/19 04:44 05/12/19 04:44 05/12/19 04:44 Intake & Output 05/11/19 05/12/19 05/13/19 06:59 06:59 06:59 Intake Total 550 1272 Output Total 0 Balance 550 1272 Weight 114.1 kg 111 kg General appearance: PRESENT: no acute distress, well-developed, well-nourished Head exam: PRESENT: atraumatic, normocephalic Eye exam: PRESENT: conjunctiva pink, EOMI, PERRLA. ABSENT: scleral icterus Ear exam: PRESENT: normal external ear exam Mouth exam: PRESENT: moist, tongue midline Neck exam: ABSENT: carotid bruit, JVD, lymphadenopathy, thyromegaly Respiratory exam: PRESENT: clear to auscultation shannon. ABSENT: rales, rhonchi, wheezes Cardiovascular exam: PRESENT: irregular rhythm. ABSENT: diastolic murmur, rubs, systolic murmur Pulses: PRESENT: normal dorsalis pedis pul Vascular exam: PRESENT: normal capillary refill GI/Abdominal exam: PRESENT: normal bowel sounds, soft. ABSENT: distended, gua rding, mass, organolmegaly, rebound, tenderness Rectal exam: PRESENT: deferred Extremities exam: PRESENT: full ROM. ABSENT: calf tenderness, clubbing, pedal edema Neurological exam: PRESENT: alert, awake, oriented to person, oriented to place, oriented to time, oriented to situation, CN II-XII grossly intact. ABSENT: flores r sensory deficit Psychiatric exam: PRESENT: appropriate affect, normal mood. ABSENT: homicidal ideation, suicidal ideation Skin exam: PRESENT: dry, intact, warm. ABSENT: cyanosis, rash Results Laboratory Results: 05/12/19 05:03 05/12/19 05:03 05/12/19 05/12/19 05/12/19 01:25 05:03 05:03 WBC 5.5 RBC 4.92 Hgb 13.3 Hct 40.4 MCV 82 MCH 27.0 MCHC 32.9 RDW 17.3 H Plt Count 361 Sodium 140.7 Potassium 4.4 Chloride 107 Carbon Dioxide 24 Anion Gap 10 BUN 20 Creatinine 0.98 Est GFR ( Amer) > 60 Glucose 113 H Calcium 10.0 Urine Color YELLOW Urine Appearance CLEAR Urine pH 5.0 Ur Specific [place] 1.016 Urine Protein NEGATIVE Urine Glucose (UA) NEGATIVE Urine Ketones NEGATIVE Urine Blood SMALL H Urine Nitrite NEGATIVE Ur Leukocyte Esterase NEGATIVE Urine WBC (Auto) 1 Urine RBC (Auto) 2 05/10/19 05/10/19 05/10/19 16:15 16:15 22:26 Creatine Kinase 155 H CK-MB (CK-2) Troponin I < 0.012 NT-Pro-B Natriuret Pep 2380 H 05/10/19 05/11/19 05/11/19 22:26 04:24 04:24 Creatine Kinase 132 CK-MB (CK-2) 0.90 1.03 Troponin I < 0.012 < 0.012 NT-Pro-B Natriuret Pep 05/11/19 05/11/19 14:00 14:00 Creatine Kinase 142 H CK-MB (CK-2) 1.11 Troponin I < 0.012 NT-Pro-B Natriuret Pep Impressions: Chest X-Ray 05/10/19 16:00 IMPRESSION: Stable enlarged cardiac silhouette without edema. Large hiatal hernia, stable. Assessment and Plan - Plan Summary Summary: 05/12/2019- A. fib with RVR-patient continues on sotalol 160 mg p.o. twice daily and p.o. C ardizem 100 mg p.o. daily. Coreg 25 g p.o. twice daily. Patient remains in a atrial fibrillation rate 110 at this time. Patient has been followed by cardiology will await the recommendations. Elevated BNP-secondary to #1. No evidence of acute volume overload at this time. Hypertension stable continue to follow Morbid obesity continue to educate about the importance of dietary modification Obstructive sleep apnea continue BiPAP - Time Time Spent with patient: 15-24 minutes - Inpatient Certification Based on my medical assessment, after consideration of the patient's comorbidities, presenting symptoms, or acuity I expect that the services needed warrant INPATIENT care.: Yes I certify that my determination is in accordance with my understanding of Medicare's requirements for reasonable and necessary INPATIENT services [42 CFR 412.3e].: Yes Medical Necessity: Other - Medication for heart rate control titration
--- NOTE | 2019-05-12 13:05 | PDOC PROGRESS REPORT ---
Subjective Progress Note for:: 05/12/19 Reason For Visit: AFIB Physical Exam Vital Signs: Temp Pulse Resp BP Pulse Ox 98.2 F 105 H 18 116/83 100 05/12/19 08:17 05/12/19 08:17 05/12/19 08:17 05/12/19 08:17 05/12/19 08:17 Intake & Output 05/11/19 05/12/19 05/13/19 06:59 06:59 06:59 Intake Total 550 1272 Output Total 0 Balance 550 1272 Weight 114.1 kg 111 kg General appearance: PRESENT: no acute distress, cooperative, morbidly obese, well-developed, well-nourished Head exam: PRESENT: atraumatic, normocephalic Eye exam: PRESENT: conjunctiva pink, EOMI, PERRLA. ABSENT: scleral icterus Ear exam: ABSENT: normal external ear exam Mouth exam: PRESENT: moist, neck supple, tongue midline Neck exam: ABSENT: carotid bruit, JVD, lymphadenopathy, thyromegaly Respiratory exam: PRESENT: clear to auscultation shannon, unlabored. ABSENT: rales, rhonchi, wheezes Cardiovascular exam: PRESENT: irregular rhythm, systolic murmur. ABSENT: diastolic murmur, RRR, rubs Pulses: PRESENT: normal dorsalis pedis pul Vascular exam: PRESENT: normal capillary refill GI/Abdominal exam: PRESENT: normal bowel sounds, soft. ABSENT: distended, guarding, mass, organolmegaly, rebound, tenderness Rectal exam: PRESENT: deferred Extremities exam: PRESENT: full ROM, pedal edema, +1 edema. ABSENT: calf tend erness, clubbing Neurological exam: PRESENT: alert, awake, oriented to person, oriented to place, oriented to time, oriented to situation, CN II-XII grossly intact. ABSENT: m otor sensory deficit Psychiatric exam: PRESENT: appropriate affect, normal mood. ABSENT: homicidal ideation, suicidal ideation Skin exam: PRESENT: dry, intact, warm. ABSENT: cyanosis, rash Results Laboratory Results: 05/12/19 05:03 05/12/19 05:03 05/12/19 05/12/19 05/12/19 01:25 05:03 05:03 WBC 5.5 RBC 4.92 Hgb 13.3 Hct 40.4 MCV 82 MCH 27.0 MCHC 32.9 RDW 17.3 H Plt Count 361 Sodium 140.7 Potassium 4.4 Chloride 107 Carbon Dioxide 24 Anion Gap 10 BUN 20 Creatinine 0.98 Est GFR ( Amer) > 60 Glucose 113 H Calcium 10.0 Urine Color YELLOW Urine Appearance CLEAR Urine pH 5.0 Ur Specific [place] 1.016 Urine Protein NEGATIVE Urine Glucose (UA) NEGATIVE Urine Ketones NEGATIVE Urine Blood SMALL H Urine Nitrite NEGATIVE Ur Leukocyte Esterase NEGATIVE Urine WBC (Auto) 1 Urine RBC (Auto) 2 05/10/19 05/10/19 05/10/19 16:15 16:15 22:26 Creatine Kinase 155 H CK-MB (CK-2) Troponin I < 0.012 NT-Pro-B Natriuret Pep 2380 H 05/10/19 05/11/19 05/11/19 22:26 04:24 04:24 Creatine Kinase 132 CK-MB (CK-2) 0.90 1.03 Troponin I < 0.012 < 0.012 NT-Pro-B Natriuret Pep 05/11/19 05/11/19 14:00 14:00 Creatine Kinase 142 H CK-MB (CK-2) 1.11 Troponin I < 0.012 NT-Pro-B Natriuret Pep Impressions: Chest X-Ray 05/10/19 16:00 IMPRESSION: Stable enlarged cardiac silhouette without edema. Large hiatal hernia, stable. Assessment & Plan - Diagnosis (1) Atrial fibrillation with RVR Is this a current diagnosis for this admission?: Yes Plan: 1. Remains in Afib, rate under 100 unless up moving around. Plan is for rate control and see if she spontaneously converts back to normal sinus. However, patient is amenable to DCCV if hospitalist can assist with procedure. Patient is also amenable to changing her AAD. Dr Salinas and I have discussed Tikosyn, however, she would have to have a 3 day washout from the Sotalol and admission to another facility for Tikosyn. Today, will increase Cardizem to 180mg bid, to start now. Will need EKG tomorrow. Also, discussed w/pt she has to work harder at weight control. (2) Hypertension Qualifiers: Hypertension type: unspecified Qualified Code(s): I10 - Essential (primary) hypertension Is this a current diagnosis for this admission?: Yes Plan: BP has been stable, cont current medications.
[2019-05-12] MEDS: DILTIAZEM HCL 180 MG CAPSULE.CR PO SCH ×2 (14:56→22:05)
[2019-05-13 06:42] LABS: HEMATOCRIT 38.5 % (36.0-47.0); HEMOGLOBIN 12.7 g/dL (12.0-15.5); MEAN CORPUSCULAR HEMOGLOBIN 26.9 pg (27.0-33.4); MEAN CORPUSCULAR VOLUME 81 fl (80-97); PLATELET COUNT 312 10^3/uL (150-450); RED BLOOD COUNT 4.74 10^6/uL (3.72-5.28); RED CELL DISTRIBUTION WIDTH 17.2 % (11.5-14.0); WHITE BLOOD COUNT 5.7 10^3/uL (4.0-10.5)
[2019-05-13 07:07] LABS: ANION GAP 9 (5-19); BLOOD UREA NITROGEN 20 mg/dL (7-20); CARBON DIOXIDE 25 mmol/L (22-30); CHLORIDE 106 mmol/L (98-107); GLUCOSE 95 mg/dL (75-110); POTASSIUM 4.4 mmol/L (3.6-5.0)
--- NOTE | 2019-05-13 08:35 | PDOC PROGRESS REPORT ---
Subjective Progress Note for:: 05/13/19 Reason For Visit: AFIB Physical Exam Vital Signs: Temp Pulse Resp BP Pulse Ox 98.2 F 82 16 113/61 100 05/13/19 04:33 05/13/19 04:33 05/13/19 04:33 05/13/19 04:33 05/13/19 04:33 Intake & Output 05/12/19 05/13/19 05/14/19 06:59 06:59 06:59 Intake Total 1272 1524 Balance 1272 1524 Weight 111 kg 110.5 kg General appearance: PRESENT: no acute distress, morbidly obese, well-developed, well-nourished Head exam: PRESENT: atraumatic, normocephalic Respiratory exam: PRESENT: clear to auscultation shannon, unlabored Cardiovascular exam: PRESENT: irregular rhythm, systolic murmur GI/Abdominal exam: PRESENT: normal bowel sounds Rectal exam: PRESENT: other - occult blood pending Extremities exam: PRESENT: full ROM, +1 edema Neurological exam: PRESENT: alert, awake, oriented to person, oriented to place, oriented to time, oriented to situation Psychiatric exam: PRESENT: appropriate affect, normal mood Results Laboratory Results: 05/13/19 05:58 05/13/19 05:58 05/13/19 05/13/19 05:58 05:58 WBC 5.7 RBC 4.74 Hgb 12.7 Hct 38.5 MCV 81 MCH 26.9 L MCHC 33.0 RDW 17.2 H Plt Count 312 Sodium 139.6 Potassium 4.4 Chloride 106 Carbon Dioxide 25 Anion Gap 9 BUN 20 Creatinine 0.94 Est GFR ( Amer) > 60 Glucose 95 Calcium 10.0 05/10/19 05/10/19 05/10/19 16:15 16:15 22:26 Creatine Kinase 155 H CK-MB (CK-2) Troponin I < 0.012 NT-Pro-B Natriuret Pep 2380 H 05/10/19 05/11/19 05/11/19 22:26 04:24 04:24 Creatine Kinase 132 CK-MB (CK-2) 0.90 1.03 Troponin I < 0.012 < 0.012 NT-Pro-B Natriuret Pep 05/11/19 05/11/19 14:00 14:00 Creatine Kinase 142 H CK-MB (CK-2) 1.11 Troponin I < 0.012 NT-Pro-B Natriuret Pep Impressions: Chest X-Ray 05/10/19 16:00 IMPRESSION: Stable enlarged cardiac silhouette without edema. Large hiatal hernia, stable. Assessment & Plan - Diagnosis (1) Atrial fibrillation with RVR Is this a current diagnosis for this admission?: Yes Plan: Heart rate is down into 70's overall. QTc today is 458ms per my measurement. Plan to consult Dr Rudd for DCCV if he is willing as Dr Salinas is not available at this time. Will increase Cardizem CD to 240mg today, continue other medications. (2) Hypertension Qualifiers: Hypertension type: unspecified Qualified Code(s): I10 - Essential (primary) hypertension Is this a current diagnosis for this admission?: Yes Plan: Continue current medications.
--- NOTE | 2019-05-13 09:29 | PDOC PROGRESS REPORT ---
Subjective Progress Note for:: 05/13/19 Subjective:: 05/12/2019-no complaints 05/13/2019-no complaints at this time Reason For Visit: AFIB Physical Exam Vital Signs: Temp Pulse Resp BP Pulse Ox 98.2 F 82 16 113/61 100 05/13/19 04:33 05/13/19 04:33 05/13/19 04:33 05/13/19 04:33 05/13/19 04:33 Intake & Output 05/12/19 05/13/19 05/14/19 06:59 06:59 06:59 Intake Total 1272 1524 Balance 1272 1524 Weight 111 kg 110.5 kg General appearance: PRESENT: no acute distress, well-developed, well-nourished Head exam: PRESENT: atraumatic, normocephalic Eye exam: PRESENT: conjunctiva pink, EOMI, PERRLA. ABSENT: scleral icterus Ear exam: PRESENT: normal external ear exam Mouth exam: PRESENT: moist, tongue midline Neck exam: ABSENT: carotid bruit, JVD, lymphadenopathy, thyromegaly Respiratory exam: PRESENT: clear to auscultation shannon. ABSENT: rales, rhonchi, wheezes Cardiovascular exam: PRESENT: irregular rhythm. ABSENT: diastolic murmur, rubs, systolic murmur Pulses: PRESENT: normal dorsalis pedis pul Vascular exam: PRESENT: normal capillary refill GI/Abdominal exam: PRESENT: normal bowel sounds, soft. ABSENT: distended, guarding, mass, organolmegaly, rebound, tenderness Rectal exam: PRESENT: deferred Extremities exam: PRESENT: full ROM. ABSENT: calf tenderness, clubbing, pedal edema Neurological exam: PRESENT: alert, awake, oriented to person, oriented to place, oriented to time, oriented to situation, CN II-XII grossly intact. ABSENT: motor sensory deficit Psychiatric exam: PRESENT: appropriate affect, normal mood. ABSENT: homicidal ideation, suicidal ideation Skin exam: PRESENT: dry, intact, warm. ABSENT: cyanosis, rash Results Laboratory Results: 05/13/19 05:58 05/13/19 05:58 05/13/19 05/13/19 05:58 05:58 WBC 5.7 RBC 4.74 Hgb 12.7 Hct 38.5 MCV 81 MCH 26.9 L MCHC 33.0 RDW 17.2 H Plt Count 312 Sodium 139.6 Potassium 4.4 Chloride 106 Carbon Dioxide 25 Anion Gap 9 BUN 20 Creatinine 0.94 Est GFR ( Amer) > 60 Glucose 95 Calcium 10.0 05/10/19 05/10/19 05/10/19 16:15 16:15 22:26 Creatine Kinase 155 H CK-MB (CK-2) Troponin I < 0.012 NT-Pro-B Natriuret Pep 2380 H 05/10/19 05/11/19 05/11/19 22:26 04:24 04:24 Creatine Kinase 132 CK-MB (CK-2) 0.90 1.03 Troponin I < 0.012 < 0.012 NT-Pro-B Natriuret Pep 05/11/19 05/11/19 14:00 14:00 Creatine Kinase 142 H CK-MB (CK-2) 1.11 Troponin I < 0.012 NT-Pro-B Natriuret Pep Impressions: Chest X-Ray 05/10/19 16:00 IMPRESSION: Stable enlarged cardiac silhouette without edema. Large hiatal hernia, stable. Assessment and Plan - Plan Summary Summary: 05/12/2019- A. fib with RVR-patient continues on sotalol 160 mg p.o. twice daily and p.o. Cardizem 100 mg p.o. daily. Coreg 25 g p.o. twice daily. Patient remains in a atrial fibrillation rate 110 at this time. Patient has been followed by cardiology will await the recommendations. Elevated BNP-secondary to #1. No evidence of acute volume overload at this time. Hypertension stable continue to follow Morbid obesity continue to educate about the importance of dietary modification Obstructive sleep apnea continue BiPAP 05/13/2019- Atrial fibrillation with RVR-patient continues on sotalol 160 mg p.o. twice daily and was increased to Cardizem CD 240 mg p.o. daily this morning per cardiology. Plan is to discuss with Dr. Forman about possibilities of inpatient elective cardioversion. I will await recommendations. Elevated BNP-no evidence of acute overload this time. Hypertension-stable Morbid obesity-continue dietary modification and education Obstructive sleep apnea-continue BiPAP - Time Time Spent with patient: 15-24 minutes - Inpatient Certification Based on my medical assessment, after consideration of the patient's comorbidities, presenting symptoms, or acuity I expect that the services needed warrant INPATIENT care.: Yes I certify that my determination is in accordance with my understanding of Medicare's requirements for reasonable and necessary INPATIENT services [42 CFR 412.3e].: Yes Medical Necessity: Other - Titrate rate controlling medications
[2019-05-13] MEDS: HYDROCHLOROTHIAZIDE 12.5 MG TABLET PO SCH (10:01)
[2019-05-13] MEDS: CARVEDILOL 12.5 MG TABLET PO SCH ×2 (10:02→17:12)
[2019-05-13] MEDS: POTASSIUM CHLORIDE 10 MEQ CAPSULE.ER PO SCH (10:02)
[2019-05-13] MEDS: DILTIAZEM HCL 240 MG CAPSULE.CR PO SCH ×2 (10:02→21:45)
[2019-05-13] MEDS: DABIGATRAN ETEXILATE 150 MG CAPSULE PO SCH ×2 (10:02→21:45)
[2019-05-13] MEDS: LOSARTAN POTASSIUM 50 MG TABLET PO SCH (10:02)
[2019-05-13] MEDS: SOTALOL HCL 80 MG TABLET PO SCH ×2 (10:02→21:45)
--- NOTE | 2019-05-13 21:50 | EKG REPORT ---
SEVERITY:- ABNORMAL ECG - ATRIAL FIBRILLATION LEFT VENTRICULAR HYPERTROPHY BORDERLINE T ABNORMALITIES, INFERIOR LEADS : Confirmed by: Maria Guadalupe Forman MD 13-May-2019 21:49:50
--- NOTE | 2019-05-14 08:55 | PDOC PROGRESS REPORT ---
Subjective Progress Note for:: 05/14/19 Reason For Visit: AFIB Physical Exam Vital Signs: Temp Pulse Resp BP Pulse Ox 98.2 F 83 21 H 121/79 100 05/14/19 04:23 05/14/19 07:00 05/14/19 04:23 05/14/19 04:23 05/14/19 04:23 Intake & Output 05/13/19 05/14/19 05/15/19 06:59 06:59 06:59 Intake Total 1524 1264 Balance 1524 1264 Weight 110.5 kg 112.5 kg Results Laboratory Results: 05/13/19 05:58 05/13/19 05:58 05/13/19 05/13/19 08:28 08:28 Stool Occult Blood NEGATIVE Cancelled 05/10/19 05/10/19 05/10/19 16:15 16:15 22:26 Creatine Kinase 155 H CK-MB (CK-2) Troponin I < 0.012 NT-Pro-B Natriuret Pep 2380 H 05/10/19 05/11/19 05/11/19 22:26 04:24 04:24 Creatine Kinase 132 CK-MB (CK-2) 0.90 1.03 Troponin I < 0.012 < 0.012 NT-Pro-B Natriuret Pep 05/11/19 05/11/19 14:00 14:00 Creatine Kinase 142 H CK-MB (CK-2) 1.11 Troponin I < 0.012 NT-Pro-B Natriuret Pep Impressions: Chest X-Ray 05/10/19 16:00 IMPRESSION: Stable enlarged cardiac silhouette without edema. Large hiatal hernia, stable. Assessment & Plan - Diagnosis (1) Atrial fibrillation with RVR Is this a current diagnosis for this admission?: Yes Plan: Patient is now in CVR with rate of 88 bpm. Her BP is stable at 96/69. Pt is stable, no chest pains, dizziness or palpitations. Clinically stable to be discharged home to get DCCV with EP in [place]. Procedure was discussed w/pt, she agrees. Further discussion with her on ablation and she agrees. I've contacted Dr Chato Bro and waiting for his return call. They will contact pt for consultation for DCCV and possible ablation versus changing AAD. To be discharged on current medications with the exception of Losartan and HCTZ as she will resume half dose of her home Telmisartan-HCTZ once her home B25P goes up to systolic 140. The Carvedilol is 25mg bid, Cartia is 240mg bid and Sotalol 160mg bid. Latest QTc is 470ms. I've gone over her d/c medications with her and she understands. Have discussed case with Mr Aric Pate, hospitalist.
--- NOTE | 2019-05-14 09:41 | PDOC DISCHARGE SUMMARY ---
Impression - Admit/DC Date/PCP Admission Date/Primary Care Provider: 05/10/19 22:00 GUSTABO RODRIGUEZ MD Discharge Date: 05/14/19 - Assessment Summary: 05/12/2019- A. fib with RVR-patient continues on sotalol 160 mg p.o. twice daily and p.o. Cardizem 100 mg p.o. daily. Coreg 25 g p.o. twice daily. Patient remains in a atrial fibrillation rate 110 at this time. Patient has been followed by cardiology will await the recommendations. Elevated BNP-secondary to #1. No evidence of acute volume overload at this time. Hypertension stable continue to follow Morbid obesity continue to educate about the importance of dietary modification Obstructive sleep apnea continue BiPAP 05/13/2019- Atrial fibrillation with RVR-patient continues on sotalol 160 mg p.o. twice daily and was increased to Cardizem CD 240 mg p.o. daily this morning per cardiology. Plan is to discuss with Dr. Formna about possibilities of inpatient elective cardioversion. I will await recommendations. Elevated BNP-no evidence of acute overload this time. Hypertension-stable Morbid obesity-continue dietary modification and education Obstructive sleep apnea-continue BiPAP - Additional Information Resuscitation Status: Full Code Discharge Diet: As Tolerated Discharge Activity: Activity As Tolerated Referrals: GUSTABO RODRIGUEZ MD [Primary Care Provider] - Follow up as needed Home Medications: Carvedilol [Coreg 25 mg Tablet] 1 tab PO Q12 05/11/19 Cholecalciferol (Vitamin D3) [Vitamin D3] 5,000 unit PO DAILY 05/11/19 Dabigatran Etexilate Mesylate [Pradaxa 150 mg Capsule] 150 mg PO Q12 05/11/19 Potassium Chloride [Klor-Con 10 Meq Capsule ER] 20 meq PO DAILY 05/11/19 Simvastatin [Zocor 20 mg Tablet] 20 mg PO DAILY 05/11/19 History of Present Illiness History of Present Illness: BART MA is a 59 year old female who presented to the ER with atrial fibrillation with RVR. Patient does have a history of A. fib and was previously on sotalol and Cardizem CD. Hospital Course Hospital Course: Patient admitted to [facility] and placed on IV Cardizem drip. Throughout her stay patient had her sotalol increased to 160 mg p.o. twice daily, diltiazem CD increased to 240 mg p.o. daily, and continue to receive Coreg 25 mg p.o. twice daily. At this time of discussed case with Dr. Rodriguez and we will send patient home on her current doses of sotalol, Coreg and diltiazem. Patient will be set up for an outpatient cardioversion and may require an ablation. Dr. Rodriguez is discussed with patient and her medication needs and patient states an understanding. I have discussed this with patient and she understands plan of care. Physical Exam Vital Signs: Temp Pulse Resp BP Pulse Ox 98.2 F 83 21 H 121/79 100 05/14/19 04:23 05/14/19 07:00 05/14/19 04:23 05/14/19 04:23 05/14/19 04:23 Intake & Output 05/13/19 05/14/19 05/15/19 06:59 06:59 06:59 Intake Total 1524 1264 Balance 1524 1264 Weight 110.5 kg 112.5 kg General appearance: PRESENT: no acute distress, well-developed, well-nourished Head exam: PRESENT: atraumatic, normocephalic Eye exam: PRESENT: conjunctiva pink, EOMI, PERRLA. ABSENT: scleral icterus Ear exam: PRESENT: normal external ear exam Mouth exam: PRESENT: moist, tongue midline Neck exam: ABSENT: carotid bruit, JVD, lymphadenopathy, thyromegaly Respiratory exam: PRESENT: clear to auscultation shannon. ABSENT: rales, rhonchi, wheezes Cardiovascular exam: PRESENT: irregular rhythm. ABSENT: diastolic murmur, rubs, systolic murmur Pulses: PRESENT: normal dorsalis pedis pul Vascular exam: PRESENT: normal capillary refill GI/Abdominal exam: PRESENT: normal bowel sounds, soft. ABSENT: distended, guarding, mass, organolmegaly, rebound, tenderness Rectal exam: PRESENT: deferred Extremities exam: PRESENT: full ROM. ABSENT: calf tenderness, clubbing, pedal edema Neurological exam: PRESENT: alert, awake, oriented to person, oriented to place, oriented to time, oriented to situation, CN II-XII grossly intact. ABSENT: motor sensory deficit Psychiatric exam: PRESENT: appropriate affect, normal mood. ABSENT: homicidal ideation, suicidal ideation Skin exam: PRESENT: dry, intact, warm. ABSENT: cyanosis, rash Results Laboratory Results: WBC 5.7 10^3/uL (4.0-10.5) 05/13/19 05:58 RBC 4.74 10^6/uL (3.72-5.28) 05/13/19 05:58 Hgb 12.7 g/dL (12.0-15.5) 05/13/19 05:58 Hct 38.5 % (36.0-47.0) 05/13/19 05:58 MCV 81 fl (80-97) 05/13/19 05:58 MCH 26.9 pg (27.0-33.4) L 05/13/19 05:58 MCHC 33.0 g/dL (32.0-36.0) 05/13/19 05:58 RDW 17.2 % (11.5-14.0) H 05/13/19 05:58 Plt Count 312 10^3/uL (150-450) 05/13/19 05:58 Lymph % (Auto) 27.8 % (13-45) 05/11/19 04:24 [place] % (Auto) 9.6 % (3-13) 05/11/19 04:24 Eos % (Auto) 1.4 % (0-6) 05/11/19 04:24 Baso % (Auto) 1.0 % (0-2) 05/11/19 04:24 Absolute Neuts (auto) 3.8 10^3/uL (1.7-8.2) 05/11/19 04:24 Absolute Lymphs (auto) 1.7 10^3/uL (0.5-4.7) 05/11/19 04:24 Absolute Monos (auto) 0.6 10^3/uL (0.1-1.4) 05/11/19 04:24 Absolute Eos (auto) 0.1 10^3/uL (0.0-0.6) 05/11/19 04:24 Absolute Basos (auto) 0.1 10^3/uL (0.0-0.2) 05/11/19 04:24 Seg Neutrophils % 60.2 % (42-78) 05/11/19 04:24 PT 19.5 SEC (11.4-15.4) H 05/10/19 16:15 INR 1.63 05/10/19 16:15 APTT 56.9 SEC (23.5-35.8) H 05/10/19 16:15 Sodium 139.6 mmol/L (137-145) 05/13/19 05:58 Potassium 4.4 mmol/L (3.6-5.0) 05/13/19 05:58 Chloride 106 mmol/L (98-107) 05/13/19 05:58 Carbon Dioxide 25 mmol/L (22-30) 05/13/19 05:58 Anion Gap 9 (5-19) 05/13/19 05:58 BUN 20 mg/dL (7-20) 05/13/19 05:58 Creatinine 0.94 mg/dL (0.52-1.25) 05/13/19 05:58 Est GFR ( Amer) > 60 (>60) 05/13/19 05:58 Est GFR (MDRD) Non-Af > 60 (>60) 05/13/19 05:58 Glucose 95 mg/dL (75-110) 05/13/19 05:58 Calcium 10.0 mg/dL (8.4-10.2) 05/13/19 05:58 Magnesium 2.1 mg/dL (1.6-2.3) 05/10/19 16:15 Magnesium 2.2 mg/dL (1.6-2.3) 05/10/19 16:15 Total Bilirubin 0.7 mg/dL (0.2-1.3) 05/10/19 16:15 Direct Bilirubin 0.2 mg/dL (0.0-0.4) 05/10/19 16:15 Neonat Total Bilirubin Not Reportable 05/10/19 16:15 Neonat Direct Bilirubin Not Reportable 05/10/19 16:15 Neonat Indirect Bili Not Reportable 05/10/19 16:15 AST 23 U/L (14-36) 05/10/19 16:15 ALT 17 U/L (<35) 05/10/19 16:15 Alkaline Phosphatase 78 U/L (38-126) 05/10/19 16:15 Creatine Kinase 142 U/L (30-135) H 05/11/19 14:00 CK-MB (CK-2) 1.11 ng/mL (<4.55) 05/11/19 14:00 Troponin I < 0.012 ng/mL 05/11/19 14:00 NT-Pro-B Natriuret Pep 2380 pg/mL (5-900) H 05/10/19 16:15 Total Protein 7.5 g/dL (6.3-8.2) 05/10/19 16:15 Albumin 4.1 g/dL (3.5-5.0) 05/10/19 16:15 TSH 2.29 uIU/mL (0.47-4.68) 05/10/19 16:15 TSH 2.41 uIU/mL (0.47-4.68) 05/10/19 16:15 Urine Color YELLOW 05/12/19 01:25 Urine Appearance CLEAR 05/12/19 01:25 Urine pH 5.0 (5.0-9.0) 05/12/19 01:25 Ur Specific Lissie 1.016 05/12/19 01:25 Urine Protein NEGATIVE mg/dL (NEGATIVE) 05/12/19 01:25 Urine Glucose (UA) NEGATIVE mg/dL (NEGATIVE) 05/12/19 01:25 Urine Ketones NEGATIVE mg/dL (NEGATIVE) 05/12/19 01:25 Urine Blood SMALL (NEGATIVE) H 05/12/19 01:25 Urine Nitrite NEGATIVE (NEGATIVE) 05/12/19 01:25 Urine Bilirubin NEGATIVE (NEGATIVE) 05/12/19 01:25 Urine Urobilinogen NEGATIVE mg/dL (<2.0) 05/12/19 01:25 Ur Leukocyte Esterase NEGATIVE (NEGATIVE) 05/12/19 01:25 Urine WBC (Auto) 1 /HPF 05/12/19 01:25 Urine RBC (Auto) 2 /HPF 05/12/19 01:25 Urine Bacteria (Auto) TRACE /HPF 05/12/19 01:25 Squamous Epi Cells Auto 2 /HPF 05/12/19 01:25 Urine Mucus (Auto) RARE /LPF 05/12/19 01:25 Urine Ascorbic Acid NEGATIVE (NEGATIVE) 05/12/19 01:25 Stool Occult Blood Cancelled 05/13/19 08:28 Stool Occult Blood NEGATIVE (NEGATIVE) 05/13/19 08:28 05/10/19 05/10/19 05/10/19 16:15 16:15 22:26 CK-MB (CK-2) 0.90 Troponin I < 0.012 < 0.012 NT-Pro-B Natriuret Pep 2380 H 05/11/19 05/11/19 04:24 14:00 CK-MB (CK-2) 1.03 1.11 Troponin I < 0.012 < 0.012 NT-Pro-B Natriuret Pep Impressions: Chest X-Ray 05/10/19 16:00 IMPRESSION: Stable enlarged cardiac silhouette without edema. Large hiatal hernia, stable. Plan Time Spent: Greater than 30 Minutes Stroke Is this a Stroke Patient?: No Acute Heart Failure - Is this a Heart Failure Patient?: No
[2019-05-14] MEDS: HYDROCHLOROTHIAZIDE 12.5 MG TABLET PO SCH (10:21)
[2019-05-14] MEDS: DILTIAZEM HCL 240 MG CAPSULE.CR PO SCH (10:21)
[2019-05-14] MEDS: LOSARTAN POTASSIUM 50 MG TABLET PO SCH (10:22)
[2019-05-14] MEDS: SOTALOL HCL 80 MG TABLET PO SCH (10:22)
[2019-05-14] MEDS: CARVEDILOL 12.5 MG TABLET PO SCH (10:22)
[2019-05-14] MEDS: POTASSIUM CHLORIDE 10 MEQ CAPSULE.ER PO SCH (10:22)
[2019-05-14] MEDS: DABIGATRAN ETEXILATE 150 MG CAPSULE PO SCH (10:22)
[2019-05-14 11:59] VITALS: BP 130/72
== END 2019-05-14 12:31 | disposition home or self-care (01) | DRG 310 ==
LOC: ER 15:20 → EH 22:00 → 3W 23:27
PROVIDERS: ADMIT Internal Medicine; ATTEND Internal Medicine
DX: I48.0 Paroxysmal atrial fibrillation (principal); I10 Essential (primary) hypertension; E66.01 Morbid (severe) obesity due to excess calories; G47.33 Obstructive sleep apnea (adult) (pediatric); E78.5 Hyperlipidemia, unspecified; R74.8 Abnormal levels of other serum enzymes; Z82.49 Family history of ischemic heart disease and other diseases of the circulatory system; Z88.0 Allergy status to penicillin
CPT/HCPCS: 36415; 71046; 80048; 80053; 81001; 82272; 82550; 82553; 83735; 83880; 84443; 84484; 85025; 85027; 85610; 85730; 93005; 93010; 96374; 96375; 99285; J1940; J3490

== ENCOUNTER → 2019-07-16 | Outpatient (CLI) | payer BC ==
[2019-07-16 07:55] LABS: ABSOLUTE BASOPHILS # (AUTO) 0.1 10^3/uL (0.0-0.2); ABSOLUTE EOSINOPHILS # (AUTO) 0.2 10^3/uL (0.0-0.6); ABSOLUTE LYMPHOCYTES (AUTO) 1.3 10^3/uL (0.5-4.7); ABSOLUTE MONOCYTES (AUTO) 0.5 10^3/uL (0.1-1.4); BASOPHILS % (AUTO) 0.8 % (0-2); EOSINOPHILS % (AUTO) 3.3 % (0-6); HEMATOCRIT 39.5 % (36.0-47.0); LYMPHOCYTES % (AUTO) 21.9 % (13-45); MEAN CORPUSCULAR HEMOGLOBIN 27.2 pg (27.0-33.4); MEAN CORPUSCULAR HGB CONC 32.9 g/dL (32.0-36.0); MEAN CORPUSCULAR VOLUME 83 fl (80-97); MONOCYTES % (AUTO) 8.7 % (3-13); PLATELET COUNT 312 10^3/uL (150-450); RED BLOOD COUNT 4.78 10^6/uL (3.72-5.28); RED CELL DISTRIBUTION WIDTH 16.9 % (11.5-14.0); SEGMENTED NEUTROPHILS % (AUTO) 65.3 % (42-78); TOTAL CELLS COUNTED % (AUTO) 100 %; WHITE BLOOD COUNT 6.1 10^3/uL (4.0-10.5)
[2019-07-16 08:29] LABS: CHOLESTEROL 170.65 mg/dL (0-200); TRIGLYCERIDES 59 mg/dL (<150)
[2019-07-16 08:30] LABS: ALBUMIN 4.4 g/dL (3.5-5.0); ALKALINE PHOSPHATASE 86 U/L (38-126); ANION GAP 10 (5-19); ASPARTATE AMINO TRANSFERASE 24 U/L (14-36); BILIRUBIN,DIRECT 0.2 mg/dL (0.0-0.4); BILIRUBIN,TOTAL 0.6 mg/dL (0.2-1.3); BLOOD UREA NITROGEN 14 mg/dL (7-20); CARBON DIOXIDE 25 mmol/L (22-30); CHLORIDE 107 mmol/L (98-107); GLUCOSE 89 mg/dL (75-110); POTASSIUM 4.1 mmol/L (3.6-5.0); TOTAL PROTEIN 8.1 g/dL (6.3-8.2)
[2019-07-16 08:40] LABS: DIRECT LDL 91 mg/dL (<100)
[2019-07-16 08:52] LABS: APPEARANCE,URINE CLEAR; BILIRUBIN,URINE NEGATIVE (NEGATIVE); COLOR,URINE YELLOW; GLUCOSE, URINE NEGATIVE (NEGATIVE); KETONES,URINE NEGATIVE (NEGATIVE); LEUKOCYTE ESTERASE,URINE NEGATIVE (NEGATIVE); NITRITE,URINE NEGATIVE (NEGATIVE); PROTEIN,URINE NEGATIVE (NEGATIVE); URINE SPECIFIC GRAVITY 1.014; UROBILINOGEN,URINE NEGATIVE mg/dL (<2.0)
== END ==
LOC: OD 07:08
PROVIDERS: ATTEND Internal Medicine Cardiovascular Disease
DX: I48.0 Paroxysmal atrial fibrillation (principal); E78.00 Pure hypercholesterolemia, unspecified; Z79.01 Long term (current) use of anticoagulants
CPT/HCPCS: 36415; 80048; 80061; 80076; 81001; 82272; 83735; 85025; 85730

== ENCOUNTER → 2019-10-25 | Outpatient (CLI) | payer BC ==
[2019-10-25 10:49] LABS: HEMATOCRIT 38.7 % (36.0-47.0); MEAN CORPUSCULAR HEMOGLOBIN 28.3 pg (27.0-33.4); MEAN CORPUSCULAR HGB CONC 33.6 g/dL (32.0-36.0); MEAN CORPUSCULAR VOLUME 84 fl (80-97); PLATELET COUNT 316 10^3/uL (150-450); RED BLOOD COUNT 4.59 10^6/uL (3.72-5.28); RED CELL DISTRIBUTION WIDTH 16.5 % (11.5-14.0); WHITE BLOOD COUNT 5.8 10^3/uL (4.0-10.5)
[2019-10-25 10:55] LABS: APPEARANCE,URINE CLEAR; BILIRUBIN,URINE NEGATIVE (NEGATIVE); COLOR,URINE YELLOW; GLUCOSE, URINE NEGATIVE (NEGATIVE); KETONES,URINE NEGATIVE (NEGATIVE); LEUKOCYTE ESTERASE,URINE NEGATIVE (NEGATIVE); NITRITE,URINE NEGATIVE (NEGATIVE); PROTEIN,URINE NEGATIVE (NEGATIVE); URINE SPECIFIC GRAVITY 1.013; UROBILINOGEN,URINE NEGATIVE mg/dL (<2.0)
[2019-10-25 11:16] LABS: ALBUMIN 4.4 g/dL (3.5-5.0); ALKALINE PHOSPHATASE 85 U/L (38-126); ANION GAP 7 (5-19); ASPARTATE AMINO TRANSFERASE 25 U/L (14-36); BILIRUBIN,DIRECT 0.1 mg/dL (0.0-0.4); BILIRUBIN,TOTAL 0.7 mg/dL (0.2-1.3); BLOOD UREA NITROGEN 19 mg/dL (7-20); CALCIUM 9.7 mg/dL (8.4-10.2); CARBON DIOXIDE 30 mmol/L (22-30); CHLORIDE 106 mmol/L (98-107); GLUCOSE 94 mg/dL (75-110); POTASSIUM 3.8 mmol/L (3.6-5.0)
== END ==
LOC: OD 09:58
PROVIDERS: ATTEND Internal Medicine Cardiovascular Disease
DX: I48.0 Paroxysmal atrial fibrillation (principal); Z79.01 Long term (current) use of anticoagulants
CPT/HCPCS: 36415; 80048; 80076; 81001; 82272; 83735; 85027; 85730

== ENCOUNTER 2019-10-26 14:48 | Emergency (ER) | payer BC ==
[2019-10-26] MEDS ORDERED: ASPIRIN 81 MG TABLET, CHEWABLE PO ONE (15:19)
--- NOTE | 2019-10-26 15:19 | ER Document Report ---
ED Medical Screen (RME) - General Chief Complaint: Palpitations Stated Complaint: PALPITATIONS Time Seen by Provider: 10/26/19 15:17 Primary Care Provider: GUSTABO RODRIGUEZ MD [Primary Care Provider] - Follow up as needed Mode of Arrival: Wheelchair Information source: Patient Notes: 59-year-old female presented to ED for palpitations. She states she has been having the palpitations for a week but she needed to go to [place] with her daughter who had a stroke. She states now that she is back she is come in to get her palpitations evaluated. She does have a history of A. fib. She states sometimes she does feel her heart like it is pounding and irregular. She states it feels like it flutters. She states she does not have any chest pains is just the palpitations and the fluttering. She states they are talking about doing an ablation at [place]. I have greeted and performed a rapid initial assessment of this patient. A comprehensive ED assessment and evaluation of the patient, analysis of test results and completion of medical decision making process will be conducted by an additional ED providers. TRAVEL OUTSIDE OF THE [place] IN LAST 30 DAYS: No - Related Data Allergies/Adverse Reactions: Penicillins Allergy (Verified 05/10/19 16:01) Past Medical History - Past Medical History Cardiac Medical History: Reports: Hx Atrial Fibrillation, Hx Hypertension Renal/ Medical History: Denies: Hx Peritoneal Dialysis Past Surgical History: Reports: Hx Cholecystectomy, Hx Hysterectomy Physical Exam - Vital signs Vitals: Temp Pulse Resp BP Pulse Ox 98.3 F 93 16 132/85 H 95 10/26/19 15:05 10/26/19 15:05 10/26/19 15:05 10/26/19 15:05 10/26/19 15:05 Course - Vital Signs Vital signs: Temp Pulse Resp BP Pulse Ox 98.3 F 93 16 132/85 H 95 10/26/19 15:05 10/26/19 15:05 10/26/19 15:05 10/26/19 15:05 10/26/19 15:05 Doctor's Discharge - Discharge Referrals: GUSTABO RODRIGUEZ MD [Primary Care Provider] - Follow up as needed
[2019-10-26 16:01] LABS: ABSOLUTE BASOPHILS # (AUTO) 0.1 10^3/uL (0.0-0.2); ABSOLUTE EOSINOPHILS # (AUTO) 0.2 10^3/uL (0.0-0.6); ABSOLUTE MONOCYTES (AUTO) 0.6 10^3/uL (0.1-1.4); ABSOLUTE NEUT (AUTO) 2.5 10^3/uL (1.7-8.2); TOTAL CELLS COUNTED % (AUTO) 100 %
[2019-10-26 16:12] LABS: ALBUMIN 4.3 g/dL (3.5-5.0); ALKALINE PHOSPHATASE 84 U/L (38-126); ANION GAP 9 (5-19); ASPARTATE AMINO TRANSFERASE 25 U/L (14-36); BILIRUBIN,DIRECT 0.3 mg/dL (0.0-0.4); BILIRUBIN,TOTAL 0.5 mg/dL (0.2-1.3); BLOOD UREA NITROGEN 17 mg/dL (7-20); CALCIUM 9.5 mg/dL (8.4-10.2); CARBON DIOXIDE 28 mmol/L (22-30); CHLORIDE 104 mmol/L (98-107); GLUCOSE 94 mg/dL (75-110)
[2019-10-26 16:17] LABS: ABSOLUTE LYMPHOCYTES (AUTO) 1.8 10^3/uL (0.5-4.7); BASOPHILS % (AUTO) 1.1 % (0-2); EOSINOPHILS % (AUTO) 3.9 % (0-6); HEMATOCRIT 38.8 % (36.0-47.0); HEMOGLOBIN 12.6 g/dL (12.0-15.5); LYMPHOCYTES % (AUTO) 34.5 % (13-45); MEAN CORPUSCULAR HEMOGLOBIN 27.9 pg (27.0-33.4); MEAN CORPUSCULAR HGB CONC 32.6 g/dL (32.0-36.0); MEAN CORPUSCULAR VOLUME 86 fl (80-97); MONOCYTES % (AUTO) 12.2 % (3-13); PLATELET COUNT 328 10^3/uL (150-450); RED BLOOD COUNT 4.54 10^6/uL (3.72-5.28); RED CELL DISTRIBUTION WIDTH 15.6 % (11.5-14.0); SEGMENTED NEUTROPHILS % (AUTO) 48.3 % (42-78); WHITE BLOOD COUNT 5.2 10^3/uL (4.0-10.5)
--- NOTE | 2019-10-26 18:25 | RADIOLOGY REPORT (SQ) ---
EXAM DESCRIPTION: CHEST 2 VIEWS COMPLETED DATE/TIME: 10/26/2019 6:10 pm REASON FOR STUDY: palpitations COMPARISON: 05/10/2019 EXAM PARAMETERS: NUMBER OF VIEWS: two views TECHNIQUE: Digital Frontal and Lateral radiographic views of the chest acquired. RADIATION DOSE: NA LIMITATIONS: none FINDINGS: LUNGS AND PLEURA: No opacities, masses or pneumothorax. No pleural effusion. MEDIASTINUM AND HILAR STRUCTURES: Hiatal hernia. HEART AND VASCULAR STRUCTURES: Cardiomegaly. No pulmonary edema. BONES: No acute findings. HARDWARE: None in the chest. OTHER: No other significant finding. IMPRESSION: Cardiomegaly without pulmonary edema. Hiatal hernia. TECHNICAL DOCUMENTATION: JOB ID: [id number] 2010 [employer]- All Rights Reserved Reading location - IP/workstation name: [email or web address]
--- NOTE | 2019-10-26 21:14 | ER Document Report ---
ED General - General Chief Complaint: Palpitations Stated Complaint: PALPITATIONS Time Seen by Provider: 10/26/19 15:17 Primary Care Provider: GUSTABO SALINAS MD [Primary Care Provider] - Follow up as needed Mode of Arrival: Wheelchair Notes: triage note patient to [facility] 3 in wheelchair. patient complains of palpitations without chest pain. patient states this started 5 days ago patient states she went to her doctors for her palpitations and was told she was in afib and sent here. patient states she has a hx of afib. patient states she feels fine overall, states "jori felt uncomfortable for 5 days. my heart is just not beating like it should" patient breaths e/u, nad 59-year-old black female arrives by POV self driven. Patient complains of palpitations and A. fib since she has had this 2003 and every 3 months she goes to Dr. Rachel's office and gets blood work stool samples. Patient takes blood pressure medicine and blood thinner. She reports she gets some shortness of breath when she walks more than 15 feet. 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 She does not handle money and she has not been around sick people and has not flown outside the [place] recently. At this time there is a coronavirus outbreak in this country and pandemic. She denies any rhinorrhea sore throat cough or cold symptoms. TRAVEL OUTSIDE OF THE [place] IN LAST 30 DAYS: No - HPI Onset/Duration: Persistent Quality of pain: No pain Severity: None Pain Level: Denies Associated symptoms: None, Weakness - Tiredness in her legs when she walks more than 15 feet Exacerbated by: Denies Relieved by: Denies Similar symptoms previously: Yes Recently seen / treated by doctor: Yes - Related Data Allergies/Adverse Reactions: Penicillins Allergy (Verified 05/10/19 16:01) Home Medications: pradaxa, sotalol, diltiazem, potassium chloride, carvedilol, telmisartan, simvastatin Past Medical History - General Information source: Patient - Social History Smoking Status: Never Smoker Cigarette use (# per day): No Chew tobacco use (# tins/day): No Smoking Education Provided: No Frequency of alcohol use: None Drug Abuse: None Lives with: Family Family History: Hypertension Patient has suicidal ideation: No Patient has homicidal ideation: No - Past Medical History Cardiac Medical History: Reports: Hx Atrial Fibrillation, Hx Hypertension Renal/ Medical History: Denies: Hx Peritoneal Dialysis Past Surgical History: Reports: Hx Cholecystectomy, Hx Hysterectomy Review of Systems - Review of Systems Constitutional: See HPI, Weakness EENT: No symptoms reported Cardiovascular: See HPI, Palpitations Respiratory: No symptoms reported Gastrointestinal: No symptoms reported Genitourinary: No symptoms reported Female Genitourinary: No symptoms reported Musculoskeletal: No symptoms reported Skin: No symptoms reported Hematologic/Lymphatic: No symptoms reported Neurological/Psychological: No symptoms reported Physical Exam - Vital signs Vitals: Temp Pulse Resp BP Pulse Ox 98.3 F 93 16 132/85 H 95 10/26/19 15:05 10/26/19 15:05 10/26/19 15:05 10/26/19 15:05 10/26/19 15:05 Course - Vital Signs Vital signs: Temp Pulse Resp BP Pulse Ox 98 F 79 23 H 123/79 100 10/26/19 23:01 10/26/19 20:43 10/27/19 03:36 10/27/19 03:36 10/27/19 02:01 - Laboratory Result Diagrams: 10/26/19 15:25 10/26/19 15:25 Laboratory results interpreted by me: 10/26/19 10/26/19 10/26/19 15:25 15:25 15:25 RDW 15.6 H Est GFR (MDRD) Non-Af 58 L NT-Pro-B Natriuret Pep 1560 H Urine Blood 10/26/19 20:59 RDW Est GFR (MDRD) Non-Af NT-Pro-B Natriuret Pep Urine Blood MODERATE H - Diagnostic Test Radiology reviewed: Reports reviewed Radiology results interpreted by me: 10/26/19 21:18 Cardiomegaly without pulmonary edema Critical Care Note - Critical Care Note Total time excluding time spent on procedures (mins): 90 Comments: I spoke with Dr. Pena after calling spar machine operator to reach Dr. Dan. Dr. Pena advises following up in office for possible cardioversion. Patient is scheduled to see her doctor next Friday and will discuss cardiac ablation for her A. fib. We walked the patient down the hallway at least 50 feet and she became tachycardic at 121 reports her legs were somewhat weak but after resting and her gurney for approximately 60 seconds she had a ventricular heart rate under 100 with underlying A. 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 Her daughter is still unable to use her right arm and leg well but is able to ambulate Discharge - Discharge Clinical Impression: Rapid atrial fibrillation, Tachycardia, Elevated brain natriuretic peptide (BNP) level, Hiatal hernia Condition: Good Disposition: HOME, SELF-CARE Additional Instructions: Follow-up with theatre director Dr. Salinas as per our discussion. Call him tomorrow and he can pull up the lab results today. Off work as directed keep fluids at less than 1 quart per day. Forms: Return to Work Referrals: GUSTABO SALINAS MD [Primary Care Provider] - Follow up as needed
[2019-10-26] MEDS ORDERED: DILTIAZEM HCL INJ 25 MG/5 ML VIAL IV ONE (21:39)
--- NOTE | 2019-10-26 21:43 | EKG REPORT ---
SEVERITY:- ABNORMAL ECG - ATRIAL FIBRILLATION LEFT VENTRICULAR HYPERTROPHY BORDERLINE T ABNORMALITIES, INFERIOR LEADS : Confirmed by: Maria Guadalupe Forman MD 26-Oct-2019 21:42:42
[2019-10-26 22:28] LABS: APPEARANCE,URINE CLEAR; BILIRUBIN,URINE NEGATIVE (NEGATIVE); COLOR,URINE YELLOW; GLUCOSE, URINE NEGATIVE (NEGATIVE); KETONES,URINE NEGATIVE (NEGATIVE); LEUKOCYTE ESTERASE,URINE NEGATIVE (NEGATIVE); NITRITE,URINE NEGATIVE (NEGATIVE); PROTEIN,URINE NEGATIVE (NEGATIVE); URINE SPECIFIC GRAVITY 1.013; UROBILINOGEN,URINE NEGATIVE mg/dL (<2.0)
[2019-10-26] MEDS ORDERED: NORMAL SALINE 1000 ML 1,000 ML IV ONE (23:16)
[2019-10-27] MEDS ORDERED: BUMETANIDE INJ/PF 1 MG/4 ML SDV IV ONE (00:26)
--- NOTE | 2019-10-27 01:52 | RADIOLOGY REPORT (SQ) ---
EXAM DESCRIPTION: CT CHEST ANGIOGRAPHY WITHOUT THEN WITH IV CONTRAST COMPLETED DATE/TME: 10/27/2019 00:32 CLINICAL HISTORY: 59 years, Female, cp. CREAT 0.98 COMPARISON: None. TECHNIQUE: 595 Images stored on PACS. All CT scanners at this facility use dose modulation, iterative reconstruction, and/or weight based dosing when appropriate to reduce radiation dose to as low as reasonably achievable (ALARA). Axial CTA images of the chest with coronal and sagittal MIPS [facility]: Dose Right [facility]: CareDose [facility]: Dose Right [facility]: Teradose 4D [facility]: [employer] LIMITATIONS: None. FINDINGS: The mediastinal vasculature enhances normally. No filling defect to suggest pulmonary embolus. Negative for thoracic aortic aneurysm or dissection. Cardiomegaly. No mediastinal or hilar adenopathy. Limited evaluation of the upper abdomen shows a large hiatal hernia. Osseous structures are grossly intact. No pneumothorax. Airways are patent. Lungs are clear IMPRESSION: No acute intrathoracic process. Large hiatal hernia TECHNICAL DOCUMENTATION: Quality ID # 436: Final reports with documentation of one or more dose reduction techniques (e.g., Automated exposure control, adjustment of the mA and/or kV according to patient size, use of iterative reconstruction technique) copyright 2011 [employer]- All Rights Reserved
[2019-10-27 04:34] VITALS: BP 118/70
== END 2019-10-27 04:34 | disposition home or self-care (01) ==
LOC: ER 14:48
DX: I48.91 Unspecified atrial fibrillation (principal); K44.9 Diaphragmatic hernia without obstruction or gangrene; R00.0 Tachycardia, unspecified; R79.89 Other specified abnormal findings of blood chemistry; R00.2 Palpitations; I10 Essential (primary) hypertension; Z79.899 Other long term (current) drug therapy; Z79.01 Long term (current) use of anticoagulants; Z88.0 Allergy status to penicillin
CPT/HCPCS: 93005; 99291; 99292; 96361; 96374; 96375; 36415; 83735; 84443; 85025; 80053; 81001; 84484; 83880; 71046; 71275; 93010; J3490 ×2; J7030

== ENCOUNTER → 2020-01-28 | Outpatient (CLI) | payer BC ==
[2020-01-28 09:15] LABS: HEMATOCRIT 38.9 % (36.0-47.0); HEMOGLOBIN 12.9 g/dL (12.0-15.5); MEAN CORPUSCULAR HEMOGLOBIN 27.3 pg (27.0-33.4); MEAN CORPUSCULAR HGB CONC 33.1 g/dL (32.0-36.0); MEAN CORPUSCULAR VOLUME 82 fl (80-97); PLATELET COUNT 295 10^3/uL (150-450); RED BLOOD COUNT 4.72 10^6/uL (3.72-5.28); RED CELL DISTRIBUTION WIDTH 16.8 % (11.5-14.0); WHITE BLOOD COUNT 5.3 10^3/uL (4.0-10.5)
[2020-01-28 09:32] LABS: APPEARANCE,URINE CLEAR; BILIRUBIN,URINE NEGATIVE (NEGATIVE); COLOR,URINE YELLOW; GLUCOSE, URINE NEGATIVE (NEGATIVE); KETONES,URINE NEGATIVE (NEGATIVE); LEUKOCYTE ESTERASE,URINE NEGATIVE (NEGATIVE); NITRITE,URINE NEGATIVE (NEGATIVE); PROTEIN,URINE NEGATIVE (NEGATIVE); URINE SPECIFIC GRAVITY 1.015; UROBILINOGEN,URINE NEGATIVE mg/dL (<2.0)
[2020-01-28 09:37] LABS: ALBUMIN 4.3 g/dL (3.5-5.0); ALKALINE PHOSPHATASE 86 U/L (38-126); ANION GAP 6 (5-19); ASPARTATE AMINO TRANSFERASE 26 U/L (14-36); BILIRUBIN,DIRECT 0.1 mg/dL (0.0-0.4); BILIRUBIN,TOTAL 0.5 mg/dL (0.2-1.3); BLOOD UREA NITROGEN 13 mg/dL (7-20); CARBON DIOXIDE 29 mmol/L (22-30); CHLORIDE 105 mmol/L (98-107); GLUCOSE 93 mg/dL (75-110); POTASSIUM 3.9 mmol/L (3.6-5.0); TOTAL PROTEIN 7.8 g/dL (6.3-8.2)
== END ==
LOC: OD 07:21
PROVIDERS: ATTEND Internal Medicine Cardiovascular Disease
DX: I48.0 Paroxysmal atrial fibrillation (principal); Z79.01 Long term (current) use of anticoagulants
CPT/HCPCS: 36415; 80048; 80076; 81001; 82272; 83735; 85027; 85730

== ENCOUNTER → 2020-05-01 | Outpatient (CLI) | payer BC ==
[2020-05-01 07:39] LABS: HEMATOCRIT 36.2 % (36.0-47.0); HEMOGLOBIN 12.1 g/dL (12.0-15.5); MEAN CORPUSCULAR HEMOGLOBIN 27.6 pg (27.0-33.4); MEAN CORPUSCULAR HGB CONC 33.4 g/dL (32.0-36.0); MEAN CORPUSCULAR VOLUME 83 fl (80-97); PLATELET COUNT 287 10^3/uL (150-450); RED BLOOD COUNT 4.38 10^6/uL (3.72-5.28); RED CELL DISTRIBUTION WIDTH 15.7 % (11.5-14.0); WHITE BLOOD COUNT 5.3 10^3/uL (4.0-10.5)
[2020-05-01 07:51] LABS: CHOLESTEROL 137.15 mg/dL (0-200); TRIGLYCERIDES 60 mg/dL (<150)
[2020-05-01 07:52] LABS: ALBUMIN 4.2 g/dL (3.5-5.0); ALKALINE PHOSPHATASE 84 U/L (38-126); ANION GAP 5 (5-19); ASPARTATE AMINO TRANSFERASE 29 U/L (14-36); BILIRUBIN,DIRECT 0.3 mg/dL (0.0-0.4); BILIRUBIN,TOTAL 0.6 mg/dL (0.2-1.3); BLOOD UREA NITROGEN 13 mg/dL (7-20); CALCIUM 9.6 mg/dL (8.4-10.2); CARBON DIOXIDE 27 mmol/L (22-30); CHLORIDE 108 mmol/L (98-107); GLUCOSE 95 mg/dL (75-110); TOTAL PROTEIN 7.3 g/dL (6.3-8.2)
[2020-05-01 08:02] LABS: DIRECT LDL 57 mg/dL (<100)
[2020-05-01 09:45] LABS: APPEARANCE,URINE CLEAR; BILIRUBIN,URINE NEGATIVE (NEGATIVE); COLOR,URINE YELLOW; GLUCOSE, URINE NEGATIVE (NEGATIVE); KETONES,URINE NEGATIVE (NEGATIVE); LEUKOCYTE ESTERASE,URINE NEGATIVE (NEGATIVE); NITRITE,URINE NEGATIVE (NEGATIVE); PROTEIN,URINE NEGATIVE (NEGATIVE); URINE SPECIFIC GRAVITY 1.014; UROBILINOGEN,URINE NEGATIVE mg/dL (<2.0)
[2020-05-01 10:04] LABS: ADD MANUAL MICROSCOPIC YES
== END ==
LOC: OD 07:06
PROVIDERS: ATTEND Internal Medicine Cardiovascular Disease
DX: E78.00 Pure hypercholesterolemia, unspecified (principal); I48.0 Paroxysmal atrial fibrillation; Z79.01 Long term (current) use of anticoagulants; Z79.899 Other long term (current) drug therapy
CPT/HCPCS: 36415; 80048; 80061; 80076; 81001; 82272; 83735; 85027; 85730